=== PATIENT | male | born 1955 | race Caucasian/White ===

== ENCOUNTER 2018-05-14 23:06 | Inpatient (IN) | payer BC, OTHER ==
[~2018-05-14] VITALS: Ht 170.2 cm; Wt 82.4 kg
[~2018-05-14 23:06] MED LIST: ASPI-650 PO; CARV3.122 PO; CARV6.252 PO; CLOP75TA PO; ENAL20TA PO; FINA5TAB4 PO; GABA300C10 PO; GLIP10TA13 PO; HYDR-3240 PO; INSU100I29 SQ; INSU100V13 SQ; LEVEMIR SQ; LEVO500T8 PO; LOSA25TA2 PO; METF10002 PO; METF500T17 PO; MULT-6 PO; OMEP-110 PO; PIOG30TA4 PO; PIOG30TA67 PO; PRAV40TA2 PO; PRAV80TA2 PO; TAMS0.4C2 PO
[2018-05-14] MEDS ORDERED: FUROSEMIDE 20 MG/2 ML IV ONE (23:30)
[2018-05-14] MEDS ORDERED: OXYcodone/APAP 7.5/325MG TABLET PO ONE (23:30)
[2018-05-14] MEDS ORDERED: OXYcodone/APAP 7.5/325MG TABLET ONE (23:32)
[2018-05-14] MEDS ORDERED: FUROSEMIDE 20 MG/2 ML ONE (23:32)
[2018-05-14 23:40] LABS: MEAN CORPUSCULAR HEMOGLOBIN 30.8 pg (27.5-34.5); MEAN CORPUSCULAR HGB CONC 33.5 g/dL (33.2-36.2); MEAN PLATELET VOLUME 8.7 fL (7.4-10.4); PLATELET COUNT 278 x10^3/uL (130-400); RED BLOOD COUNT 4.72 x10^6/uL (4.38-5.82); RED CELL DISTRIBUTION WIDTH 14.8 % (9.4-14.8)
[2018-05-14 23:54] LABS: ANION GAP 7 mmol/L (5-15); CALCIUM 8.3 mg/dL (8.5-10.1); CHLORIDE 106 mmol/L (98-107); CREATININE 1.72 mg/dL (0.7-1.3)
[2018-05-15 00:02] LABS: TROPONIN I 0.392 ng/mL (0.000-0.045)
[2018-05-15 00:05] LABS: BASOPHILS # (AUTO) 0.08 x10^3/uL (0-0.1); BASOPHILS % (AUTO) 1 % (0-1); EOSINOPHILS # (AUTO) 0.12 x10^3/uL (0-0.4); EOSINOPHILS % (AUTO) 1 % (1-7); LYMPHOCYTES # (AUTO) 1.64 x10^3/uL (1-3.4); LYMPHOCYTES % (AUTO) 9 % (22-44); MD SCAN; MONOCYTES # (AUTO) 0.88 x10^3/uL (0.2-0.8); MONOCYTES % (AUTO) 5 % (2-9); NEUTROPHILS # (AUTO) 16.02 x10^3/uL (1.8-6.8); NEUTROPHILS % (AUTO) 85 % (42-75)
[2018-05-15] MEDS ORDERED: INSU100V13 SC (00:19)
[2018-05-15] MEDS ORDERED: CARV25TA12 PO (00:19)
[2018-05-15] MEDS ORDERED: LOSA50TA7 PO (00:19)
[2018-05-15] MEDS ORDERED: GABA300C10 PO (00:19)
[2018-05-15] MEDS ORDERED: morphine SULFATE 10 MG/ML, 1ML IVPush PRN (01:00)
[2018-05-15] MEDS: INSULIN LISPRO 100 UNITS/ML, PEN SQ-INSULIN SCH ×5 (01:00→21:00)
[2018-05-15] MEDS ORDERED: METHOCARBAMOL 500 MG TABLET PO PRN (01:00)
[2018-05-15] MEDS ORDERED: BISACODYL 10 MG SUPP PR PRN (01:00)
[2018-05-15] MEDS ORDERED: ONDANSETRON ODT 4 MG PO PRN (01:00)
[2018-05-15] MEDS: NICOTINE 14MG/24 HR PATCH.TD24 TD SCH ×2 (01:00→22:45)
[2018-05-15] MEDS: OMEPRAZOLE 20 MG CAPSULE.DR PO SCH ×2 (01:00→20:59)
[2018-05-15 01:03] LABS: MICROSCOPIC INDICATED
[2018-05-15 01:04] LABS: CULTURE INDICATED? YES
[2018-05-15 01:13] LABS: HEMOGLOBIN A1C 7.8 % (4.2-6.3)
[2018-05-15 01:45] VITALS: BP 120/73
[2018-05-15 02:14] VITALS: BP 97/55
[2018-05-15] MEDS: PRAVASTATIN 40 MG TABLET PO SCH ×2 (02:58→20:59)
[2018-05-15 05:54] LABS: MEAN CORPUSCULAR HEMOGLOBIN 30.5 pg (27.5-34.5); MEAN CORPUSCULAR HGB CONC 33.1 g/dL (33.2-36.2); MEAN CORPUSCULAR VOLUME 92.1 fL (81-97); MEAN PLATELET VOLUME 8.7 fL (7.4-10.4); PLATELET COUNT 253 x10^3/uL (130-400); RED BLOOD COUNT 4.71 x10^6/uL (4.38-5.82); RED CELL DISTRIBUTION WIDTH 15.1 % (9.4-14.8)
[2018-05-15 06:03] LABS: ALANINE AMINOTRANSFERASE 12 U/L (12-78); ALBUMIN 2.3 g/dL (3.4-5.0); ANION GAP 9 mmol/L (5-15); CALCIUM 8.1 mg/dL (8.5-10.1); CHLORIDE 105 mmol/L (98-107); CREATININE 1.73 mg/dL (0.7-1.3)
[2018-05-15 06:08] LABS: ALKALINE PHOSPHATASE 95 U/L (45-117); BILIRUBIN,TOTAL 0.5 mg/dL (0.2-1.0); TOTAL PROTEIN 6.3 g/dL (6.4-8.2); TROPONIN I 0.309 ng/mL (0.000-0.045)
[2018-05-15 06:27] LABS: BASOPHILS # (AUTO) 0.04 x10^3/uL (0-0.1); BASOPHILS % (AUTO) 0 % (0-1); EOSINOPHILS # (AUTO) 0.23 x10^3/uL (0-0.4); EOSINOPHILS % (AUTO) 1 % (1-7); LYMPHOCYTES # (AUTO) 1.42 x10^3/uL (1-3.4); LYMPHOCYTES % (AUTO) 8 % (22-44); MD SCAN; MONOCYTES # (AUTO) 1.23 x10^3/uL (0.2-0.8); MONOCYTES % (AUTO) 7 % (2-9); NEUTROPHILS # (AUTO) 15.56 x10^3/uL (1.8-6.8); NEUTROPHILS % (AUTO) 84 % (42-75)
[2018-05-15 07:30] VITALS: BP 108/65
[2018-05-15] MEDS ORDERED: GLUCAGON 1 MG IM PRN (07:30)
[2018-05-15] MEDS ORDERED: DEXTROSE 50%, 50ML SYRINGE IVPush PRN (07:30)
[2018-05-15] MEDS ORDERED: DEXTROSE 4 GM TAB.CHEW PO PRN (07:30)
[2018-05-15] MEDS ORDERED: FUROSEMIDE 20 MG/2 ML IV SCH (07:30)
[2018-05-15] MEDS ORDERED: HYDROmorphone 2 MG/ML, 1ML ONE ×2 (07:34→20:41)
[2018-05-15] MEDS: HYDROmorphone 1 MG/ML, 1ML IV PRN ×2 (07:38→20:45)
[2018-05-15 08:10] LABS: CHOL/HDL RATIO 3.3; FREE T4 (FREE THYROXINE) 1.18 ng/dL (0.76-1.46); LDL/HDL RATIO 1.3 (0.5-3.0)
[2018-05-15] MEDS: SODIUM CHLORIDE FLUSH 10ML SYR IVF SCH ×4 (09:00→21:02)
[2018-05-15] MEDS: ASPIRIN 81 MG TABLET EC PO SCH (09:00)
[2018-05-15] MEDS ORDERED: FUROSEMIDE 40 MG/4 ML IV SCH ×2 (09:00→17:00)
[2018-05-15] MEDS ORDERED: LOSARTAN 50MG TABLET PO SCH (09:00)
[2018-05-15] MEDS: CEFTRIAXONE 2 GM in SODIUM CHLORIDE 0.9% 50 ML IV SCH (09:09)
[2018-05-15] MEDS: GABAPENTIN 300 MG CAPSULE PO SCH ×2 (09:10→20:59)
[2018-05-15] MEDS: MULTIVITAMIN 1 TABLET PO SCH (09:10)
[2018-05-15] MEDS: FINASTERIDE 5 MG TABLET PO SCH (09:10)
[2018-05-15] MEDS: TAMSULOSIN 0.4 MG CAP.ER.24H PO SCH (09:11)
[2018-05-15] MEDS: CARVEDILOL 25 MG TABLET PO SCH ×2 (09:11→20:59)
[2018-05-15 10:21] LABS: SODIUM,URINE RANDOM 114 mmol/L
[2018-05-15 10:27] LABS: CREATININE,URINE RANDOM < 13.00 mg/dL
[2018-05-15 11:53] LABS: TROPONIN I 0.233 ng/mL (0.000-0.045)
[2018-05-15] MEDS ORDERED: FENTANYL PF 100 MCG/2ML ONE ×2 (11:59→12:52)
[2018-05-15] MEDS ORDERED: PHENYLEPHRINE 10 MG/ML ONE (12:02)
[2018-05-15] MEDS ORDERED: SUCCINYLCHOLINE 20 MG/ML, 10ML ONE (12:02)
[2018-05-15] MEDS ORDERED: NEOSPORIN OINT. PKT 1 PACKET ONE (12:06)
[2018-05-15] MEDS ORDERED: ONDANSETRON 2MG/ML, 2ML ONE (12:53)
[2018-05-15] MEDS ORDERED: DEXAMETHASONE 4 MG/ML, 1ML ONE (12:53)
[2018-05-15] MEDS ORDERED: CEFAZOLIN 1,000 MG ONE (12:53)
[2018-05-15] MEDS ORDERED: PROPOFOL 10 MG/ML, 20ML ONE (12:53)
[2018-05-15] MEDS ORDERED: ONDANSETRON ODT 8 MG PO PRN (13:00)
[2018-05-15] MEDS ORDERED: LABETALOL 5MG/ML, 20ML IV PRN (13:00)
[2018-05-15] MEDS ORDERED: HYDROmorphone 1 MG/ML, 1ML IV PRN (13:00)
[2018-05-15] MEDS ORDERED: ACETAMINOPHEN 325 MG TABLET PO PRN (13:00)
[2018-05-15] MEDS ORDERED: OXYcodone 5 MG/5 ML ORAL.SOL UDC PO PRN (13:00)
[2018-05-15] MEDS ORDERED: SCOPOLAMINE PATCH, 1.5MG PATCH.TD72 TD PRN (13:00)
[2018-05-15] MEDS ORDERED: PROMETHAZINE 25 MG SUPP PR PRN (13:00)
[2018-05-15] MEDS ORDERED: MIDAZOLAM 1 MG/ML, 2ML IV PRN (13:00)
[2018-05-15] MEDS ORDERED: ALBUTEROL/IPRATROPIUM 2.5MG/0.5MG, 3 ML NPPB PRN (13:00)
[2018-05-15] MEDS ORDERED: hydrALAzine 20 MG/ML, 1ML IV PRN (13:00)
[2018-05-15] MEDS ORDERED: FENTANYL PF 100 MCG/2ML IV PRN (13:00)
[2018-05-15] MEDS ORDERED: ROPIvacaine/PF 0.5%, 30 ML ONE (13:25)
[2018-05-15 14:00] VITALS: BP 105/77
[2018-05-15] MEDS ORDERED: CEFAZOLIN PMX 1GM/50ML 50 ML IVPB SCH (14:00)
[2018-05-15] MEDS ORDERED: OXYcodone IR 5MG TABLET ONE (17:05)
[2018-05-15] MEDS: FUROSEMIDE 40 MG/4 ML IV SCH (17:09)
[2018-05-15 17:26] LABS: ANION GAP 10 mmol/L (5-15); CALCIUM 8.2 mg/dL (8.5-10.1); CHLORIDE 104 mmol/L (98-107); CREATININE 1.76 mg/dL (0.7-1.3)
[2018-05-15] MEDS ORDERED: PHARMACY MAY ADJ FOR RENAL FX MC PRN (18:00)
[2018-05-15] MEDS ORDERED: SODIUM POLYSTYRENE SULFONATE ORAL SUSP PO ONE (18:00)
[2018-05-15 20:00] VITALS: BP 107/74
[2018-05-15] MEDS: CLOPIDOGREL 75 MG TABLET PO SCH (21:00)
[2018-05-16 02:00] VITALS: BP 118/71
[2018-05-16] MEDS ORDERED: HYDROmorphone 2 MG/ML, 1ML ONE ×2 (02:37→12:12)
[2018-05-16] MEDS: HYDROmorphone 1 MG/ML, 1ML IV PRN ×2 (02:40→12:19)
[2018-05-16 05:40] LABS: ALBUMIN 2.1 g/dL (3.4-5.0); ANION GAP 7 mmol/L (5-15); CALCIUM 8.3 mg/dL (8.5-10.1); CHLORIDE 102 mmol/L (98-107); CREATININE 1.85 mg/dL (0.7-1.3); MEAN CORPUSCULAR HEMOGLOBIN 30.9 pg (27.5-34.5); MEAN CORPUSCULAR HGB CONC 32.9 g/dL (33.2-36.2); MEAN CORPUSCULAR VOLUME 93.8 fL (81-97); PLATELET COUNT 248 x10^3/uL (130-400); RED BLOOD COUNT 4.62 x10^6/uL (4.38-5.82); RED CELL DISTRIBUTION WIDTH 14.9 % (9.4-14.8)
[2018-05-16 06:30] LABS: BASOPHILS # (AUTO) 0.05 x10^3/uL (0-0.1); BASOPHILS % (AUTO) 0 % (0-1); EOSINOPHILS % (AUTO) 0 % (1-7); LYMPHOCYTES # (AUTO) 0.53 x10^3/uL (1-3.4); LYMPHOCYTES % (AUTO) 2 % (22-44); MD SCAN; MONOCYTES # (AUTO) 1.02 x10^3/uL (0.2-0.8); MONOCYTES % (AUTO) 5 % (2-9); NEUTROPHILS # (AUTO) 20.32 x10^3/uL (1.8-6.8); NEUTROPHILS % (AUTO) 93 % (42-75)
[2018-05-16 07:29] VITALS: BP 152/80
[2018-05-16] MEDS: INSULIN LISPRO 100 UNITS/ML, PEN SQ-INSULIN SCH ×4 (08:12→21:16)
[2018-05-16] MEDS: FUROSEMIDE 40 MG/4 ML IV SCH ×2 (08:15→17:43)
[2018-05-16] MEDS: SODIUM CHLORIDE FLUSH 10ML SYR IVF SCH ×4 (09:00→21:00)
[2018-05-16] MEDS ORDERED: MAGNESIUM SULFATE PMX 2GM/50ML 50 ML IV ONE ×3 (09:00→12:30)
[2018-05-16] MEDS: CARVEDILOL 25 MG TABLET PO SCH ×2 (09:17→21:05)
[2018-05-16] MEDS: GABAPENTIN 300 MG CAPSULE PO SCH ×2 (09:18→21:05)
[2018-05-16] MEDS: FINASTERIDE 5 MG TABLET PO SCH (09:18)
[2018-05-16] MEDS: MULTIVITAMIN 1 TABLET PO SCH (09:19)
[2018-05-16] MEDS: TAMSULOSIN 0.4 MG CAP.ER.24H PO SCH (09:19)
[2018-05-16] MEDS: ASPIRIN 81 MG TABLET EC PO SCH (09:20)
[2018-05-16] MEDS: CEFTRIAXONE 2 GM in SODIUM CHLORIDE 0.9% 50 ML IV SCH (09:24)
[2018-05-16] MEDS ORDERED: REGADENOSON 0.4 MG/5 ML SYRINGE ONE (09:57)
[2018-05-16] MEDS: ACETAMINOPHEN 325 MG TABLET PO PRN ×2 (10:42→21:06)
[2018-05-16] MEDS: INSULIN GLARGINE 100 UNITS/ML, PEN SQ-INSULIN SCH (13:41)
[2018-05-16 14:12] VITALS: BP 152/79
[2018-05-16] MEDS: HYDROcodone/APAP 5/325 TABLET PO PRN ×2 (14:12→21:06)
[2018-05-16] MEDS ORDERED: INSULIN GLARGINE 100 UNITS/ML, PEN SQ-INSULIN ONE (18:00)
[2018-05-16] MEDS: CEFTRIAXONE PMX 2GM/50ML 50 ML IV SCH (19:30)
[2018-05-16 20:46] VITALS: BP 136/76
[2018-05-16] MEDS: PRAVASTATIN 40 MG TABLET PO SCH (21:06)
[2018-05-16] MEDS: OMEPRAZOLE 20 MG CAPSULE.DR PO SCH (21:07)
[2018-05-16] MEDS: CLOPIDOGREL 75 MG TABLET PO SCH (21:07)
[2018-05-17] MEDS: NICOTINE 14MG/24 HR PATCH.TD24 TD SCH (00:48)
[2018-05-17 03:00] VITALS: BP 142/75
[2018-05-17] MEDS: HYDROcodone/APAP 5/325 TABLET PO PRN ×3 (03:06→22:04)
[2018-05-17] MEDS ORDERED: HYDROmorphone 2 MG/ML, 1ML ONE ×2 (03:17→13:15)
[2018-05-17] MEDS: HYDROmorphone 1 MG/ML, 1ML IV PRN ×2 (03:22→13:22)
[2018-05-17 05:26] LABS: ALBUMIN 1.9 g/dL (3.4-5.0); ANION GAP 11 mmol/L (5-15); CHLORIDE 99 mmol/L (98-107)
[2018-05-17 05:34] LABS: ALANINE AMINOTRANSFERASE 13 U/L (12-78); ALKALINE PHOSPHATASE 107 U/L (45-117); BILIRUBIN,TOTAL 0.5 mg/dL (0.2-1.0); CREATININE 1.71 mg/dL (0.7-1.3)
[2018-05-17 06:17] LABS: MEAN CORPUSCULAR VOLUME 91.2 fL (81-97); MEAN PLATELET VOLUME 9.3 fL (7.4-10.4); PLATELET COUNT 243 x10^3/uL (130-400); RED BLOOD COUNT 4.27 x10^6/uL (4.38-5.82); RED CELL DISTRIBUTION WIDTH 14.9 % (9.4-14.8)
[2018-05-17 07:08] VITALS: BP 122/70
[2018-05-17 07:11] LABS: MD SCAN
[2018-05-17 07:12] LABS: BASOPHILS % (AUTO) 0 % (0-1); EOSINOPHILS # (AUTO) 0.02 x10^3/uL (0-0.4); EOSINOPHILS % (AUTO) 0 % (1-7); LYMPHOCYTES # (AUTO) 0.39 x10^3/uL (1-3.4); LYMPHOCYTES % (AUTO) 3 % (22-44); MONOCYTES # (AUTO) 0.72 x10^3/uL (0.2-0.8); MONOCYTES % (AUTO) 5 % (2-9); NEUTROPHILS % (AUTO) 93 % (42-75)
[2018-05-17] MEDS: ASPIRIN 81 MG TABLET EC PO SCH (07:52)
[2018-05-17] MEDS: MULTIVITAMIN 1 TABLET PO SCH (07:52)
[2018-05-17] MEDS: TAMSULOSIN 0.4 MG CAP.ER.24H PO SCH (07:52)
[2018-05-17] MEDS: FINASTERIDE 5 MG TABLET PO SCH (07:52)
[2018-05-17] MEDS: GABAPENTIN 300 MG CAPSULE PO SCH ×2 (07:53→20:39)
[2018-05-17] MEDS: CARVEDILOL 25 MG TABLET PO SCH ×2 (07:53→20:40)
[2018-05-17] MEDS: INSULIN GLARGINE 100 UNITS/ML, PEN SQ-INSULIN SCH (07:56)
[2018-05-17] MEDS: INSULIN LISPRO 100 UNITS/ML, PEN SQ-INSULIN SCH ×4 (07:56→20:41)
[2018-05-17] MEDS: FUROSEMIDE 40 MG/4 ML IV SCH ×2 (07:58→17:57)
[2018-05-17] MEDS: SODIUM CHLORIDE FLUSH 10ML SYR IVF SCH ×4 (07:59→20:42)
[2018-05-17] MEDS: CEFTRIAXONE PMX 2GM/50ML 50 ML IV SCH (08:09)
[2018-05-17] MEDS: FLUCONAZOLE 200 MG/100 ML 100 ML IV SCH (10:06)
[2018-05-17] MEDS ORDERED: MAGNESIUM SULFATE PMX 2GM/50ML 50 ML IV ONE (14:00)
[2018-05-17 14:36] VITALS: BP 126/73
[2018-05-17 19:03] VITALS: BP 135/72
[2018-05-17 20:36] VITALS: BP 121/72
[2018-05-17] MEDS: PRAVASTATIN 40 MG TABLET PO SCH (20:40)
[2018-05-17] MEDS: CLOPIDOGREL 75 MG TABLET PO SCH (20:40)
[2018-05-17] MEDS: OMEPRAZOLE 20 MG CAPSULE.DR PO SCH (20:40)
[2018-05-18] MEDS: NICOTINE 14MG/24 HR PATCH.TD24 TD SCH ×2 (01:13→23:48)
[2018-05-18] MEDS: HYDROcodone/APAP 5/325 TABLET PO PRN ×6 (01:57→23:49)
[2018-05-18 02:42] VITALS: BP 116/67
[2018-05-18 05:17] LABS: MEAN CORPUSCULAR HEMOGLOBIN 30.4 pg (27.5-34.5); MEAN CORPUSCULAR HGB CONC 33.3 g/dL (33.2-36.2); MEAN CORPUSCULAR VOLUME 91.3 fL (81-97); MEAN PLATELET VOLUME 8.9 fL (7.4-10.4); PLATELET COUNT 239 x10^3/uL (130-400); RED BLOOD COUNT 4.21 x10^6/uL (4.38-5.82); RED CELL DISTRIBUTION WIDTH 14.8 % (9.4-14.8)
[2018-05-18 05:24] LABS: ALBUMIN 1.9 g/dL (3.4-5.0); ANION GAP 7 mmol/L (5-15); CALCIUM 8.1 mg/dL (8.5-10.1); CHLORIDE 98 mmol/L (98-107)
[2018-05-18 05:29] LABS: ALANINE AMINOTRANSFERASE 36 U/L (12-78); ALKALINE PHOSPHATASE 146 U/L (45-117); BILIRUBIN,TOTAL 0.3 mg/dL (0.2-1.0); TOTAL PROTEIN 5.8 g/dL (6.4-8.2)
[2018-05-18 05:55] LABS: BASOPHILS # (AUTO) 0.03 x10^3/uL (0-0.1); BASOPHILS % (AUTO) 0 % (0-1); EOSINOPHILS # (AUTO) 0.12 x10^3/uL (0-0.4); EOSINOPHILS % (AUTO) 1 % (1-7); LYMPHOCYTES # (AUTO) 0.81 x10^3/uL (1-3.4); LYMPHOCYTES % (AUTO) 5 % (22-44); MD SCAN; MONOCYTES # (AUTO) 1.03 x10^3/uL (0.2-0.8); MONOCYTES % (AUTO) 6 % (2-9); NEUTROPHILS # (AUTO) 14.93 x10^3/uL (1.8-6.8); NEUTROPHILS % (AUTO) 88 % (42-75)
[2018-05-18 07:17] VITALS: BP 151/78
[2018-05-18] MEDS: INSULIN GLARGINE 100 UNITS/ML, PEN SQ-INSULIN SCH (08:39)
[2018-05-18] MEDS: INSULIN LISPRO 100 UNITS/ML, PEN SQ-INSULIN SCH ×4 (08:40→21:16)
[2018-05-18] MEDS: MULTIVITAMIN 1 TABLET PO SCH (08:42)
[2018-05-18] MEDS: TAMSULOSIN 0.4 MG CAP.ER.24H PO SCH (08:42)
[2018-05-18] MEDS: FINASTERIDE 5 MG TABLET PO SCH (08:42)
[2018-05-18] MEDS: GABAPENTIN 300 MG CAPSULE PO SCH ×2 (08:42→21:14)
[2018-05-18] MEDS: ASPIRIN 81 MG TABLET EC PO SCH (08:42)
[2018-05-18] MEDS: CARVEDILOL 25 MG TABLET PO SCH ×2 (08:43→21:14)
[2018-05-18] MEDS: FUROSEMIDE 40 MG/4 ML IV SCH ×2 (08:43→17:27)
[2018-05-18] MEDS: SODIUM CHLORIDE FLUSH 10ML SYR IVF SCH ×4 (09:00→21:18)
[2018-05-18] MEDS: FLUCONAZOLE 200 MG/100 ML 100 ML IV SCH (10:21)
[2018-05-18] MEDS: MAGNESIUM OXIDE 400 MG TABLET PO SCH ×2 (10:21→21:14)
[2018-05-18 13:35] VITALS: BP 134/77
[2018-05-18 14:00] VITALS: BP 123/76
[2018-05-18 17:54] VITALS: BP 134/77
[2018-05-18 19:18] VITALS: BP 140/82
[2018-05-18] MEDS: CLOPIDOGREL 75 MG TABLET PO SCH (21:14)
[2018-05-18] MEDS: OMEPRAZOLE 20 MG CAPSULE.DR PO SCH (21:14)
[2018-05-18] MEDS: PRAVASTATIN 40 MG TABLET PO SCH (21:14)
[2018-05-19 00:02] VITALS: BP 123/82
[2018-05-19 05:39] LABS: MEAN CORPUSCULAR HEMOGLOBIN 30.8 pg (27.5-34.5); MEAN CORPUSCULAR HGB CONC 33.3 g/dL (33.2-36.2); MEAN CORPUSCULAR VOLUME 92.4 fL (81-97); MEAN PLATELET VOLUME 9.5 fL (7.4-10.4); PLATELET COUNT 205 x10^3/uL (130-400); RED BLOOD COUNT 4.19 x10^6/uL (4.38-5.82)
[2018-05-19 05:50] LABS: ALBUMIN 1.6 g/dL (3.4-5.0); ANION GAP 9 mmol/L (5-15); CALCIUM 8.6 mg/dL (8.5-10.1); CHLORIDE 97 mmol/L (98-107)
[2018-05-19 05:53] LABS: ALANINE AMINOTRANSFERASE 59 U/L (12-78); ALKALINE PHOSPHATASE 216 U/L (45-117); BILIRUBIN,TOTAL 0.5 mg/dL (0.2-1.0); CREATININE 1.46 mg/dL (0.7-1.3); TOTAL PROTEIN 5.8 g/dL (6.4-8.2)
[2018-05-19 06:22] LABS: MD YES
[2018-05-19 06:35] LABS: LYMPH#(MANUAL) 0.85 x10^3/uL (1-3.4); LYMPHS% (MANUAL) 4 % (22-44); SEG#(MANUAL) 20.45 x10^3/uL (1.8-6.8); SEGS% (MANUAL) 96 % (42-75)
[2018-05-19 06:37] LABS: <PLATELET ESTIMATE> ADEQUATE; <PLT MORPHOLOGY> NORMAL PLT MORPH; <RBC MORPHOLOGY> NORMAL
[2018-05-19 07:21] VITALS: BP 118/73
[2018-05-19] MEDS ORDERED: OXYcodone IR 5MG TABLET ONE (08:41)
[2018-05-19] MEDS: INSULIN GLARGINE 100 UNITS/ML, PEN SQ-INSULIN SCH (08:54)
[2018-05-19] MEDS: INSULIN LISPRO 100 UNITS/ML, PEN SQ-INSULIN SCH ×4 (08:54→21:24)
[2018-05-19] MEDS: ASPIRIN 81 MG TABLET EC PO SCH (08:56)
[2018-05-19] MEDS: FLUCONAZOLE 200 MG/100 ML 100 ML IV SCH (08:56)
[2018-05-19] MEDS: CARVEDILOL 25 MG TABLET PO SCH ×2 (08:56→21:20)
[2018-05-19] MEDS: GABAPENTIN 300 MG CAPSULE PO SCH ×2 (08:57→21:21)
[2018-05-19] MEDS: TAMSULOSIN 0.4 MG CAP.ER.24H PO SCH (08:58)
[2018-05-19] MEDS: FINASTERIDE 5 MG TABLET PO SCH (08:58)
[2018-05-19] MEDS: FUROSEMIDE 40 MG/4 ML IV SCH ×2 (08:58→18:10)
[2018-05-19] MEDS: MULTIVITAMIN 1 TABLET PO SCH (08:58)
[2018-05-19] MEDS: MAGNESIUM OXIDE 400 MG TABLET PO SCH ×2 (08:58→21:21)
[2018-05-19] MEDS: SODIUM CHLORIDE FLUSH 10ML SYR IVF SCH ×4 (09:00→21:22)
[2018-05-19] MEDS ORDERED: POLYETHYLENE GLYCOL 17 GM PACKET ONE (09:23)
[2018-05-19] MEDS: POLYETHYLENE GLYCOL 17 GM PACKET PO PRN (09:24)
[2018-05-19] MEDS: HYDROcodone/APAP 5/325 TABLET PO PRN ×2 (09:27→21:01)
[2018-05-19] MEDS ORDERED: DOCUSATE 50 MG/5 ML, 10ML UDC PO PRN (09:30)
[2018-05-19 12:50] VITALS: BP 129/74
[2018-05-19] MEDS ORDERED: HYDROmorphone 2 MG/ML, 1ML ONE (18:08)
[2018-05-19] MEDS: HYDROmorphone 1 MG/ML, 1ML IV PRN (18:10)
[2018-05-19 19:02] VITALS: BP 117/54
[2018-05-19] MEDS: OMEPRAZOLE 20 MG CAPSULE.DR PO SCH (21:20)
[2018-05-19] MEDS: CLOPIDOGREL 75 MG TABLET PO SCH (21:21)
[2018-05-19] MEDS: PRAVASTATIN 40 MG TABLET PO SCH (21:21)
[2018-05-20] MEDS: NICOTINE 14MG/24 HR PATCH.TD24 TD SCH (01:12)
[2018-05-20 02:29] VITALS: BP 158/80
[2018-05-20 05:14] LABS: INTERNATIONAL NORMALIZED RATIO 1.11 (0.93-1.1); PROTHROMBIN TIME 11.4 Seconds (9.6-11.5)
[2018-05-20 05:18] LABS: ALBUMIN 1.9 g/dL (3.4-5.0); ANION GAP 7 mmol/L (5-15); CALCIUM 8.6 mg/dL (8.5-10.1); CHLORIDE 95 mmol/L (98-107)
[2018-05-20 05:21] LABS: ALANINE AMINOTRANSFERASE 59 U/L (12-78); ALKALINE PHOSPHATASE 275 U/L (45-117); BILIRUBIN,TOTAL 0.7 mg/dL (0.2-1.0); CREATININE 1.34 mg/dL (0.7-1.3); TOTAL PROTEIN 6.8 g/dL (6.4-8.2)
[2018-05-20 06:22] LABS: MEAN CORPUSCULAR HEMOGLOBIN 30.4 pg (27.5-34.5); MEAN CORPUSCULAR HGB CONC 32.8 g/dL (33.2-36.2); MEAN CORPUSCULAR VOLUME 92.8 fL (81-97); MEAN PLATELET VOLUME 8.7 fL (7.4-10.4); PLATELET COUNT 282 x10^3/uL (130-400); RED BLOOD COUNT 4.26 x10^6/uL (4.38-5.82)
[2018-05-20 06:47] LABS: MD YES
[2018-05-20 06:53] LABS: BAND#(MANUAL) 0.71 x10^3/uL; BANDS%(MANUAL) 3 % (0-7); EOS#(MANUAL) 0.48 x10^3/uL (0.0-0.4); EOS% (MANUAL) 2 % (1-7); LYMPH#(MANUAL) 1.19 x10^3/uL (1-3.4); LYMPHS% (MANUAL) 5 % (22-44); MONOS#(MANUAL) 2.14 x10^3/uL (0.3-2.7); MONOS% (MANUAL) 9 % (2-9); SEG#(MANUAL) 19.28 x10^3/uL (1.8-6.8); SEGS% (MANUAL) 81 % (42-75)
[2018-05-20 06:54] LABS: <PLATELET ESTIMATE> ADEQUATE; <PLT MORPHOLOGY> NORMAL PLT MORPH; <RBC MORPHOLOGY> NORMAL
[2018-05-20] MEDS: INSULIN LISPRO 100 UNITS/ML, PEN SQ-INSULIN SCH ×4 (07:00→22:29)
[2018-05-20 07:20] VITALS: BP 131/76
[2018-05-20] MEDS: INSULIN GLARGINE 100 UNITS/ML, PEN SQ-INSULIN SCH (08:46)
[2018-05-20] MEDS: SODIUM CHLORIDE FLUSH 10ML SYR IVF SCH ×4 (09:00→22:28)
[2018-05-20] MEDS: FUROSEMIDE 40 MG/4 ML IV SCH ×2 (09:01→22:29)
[2018-05-20] MEDS: MULTIVITAMIN 1 TABLET PO SCH (09:01)
[2018-05-20] MEDS: ASPIRIN 81 MG TABLET EC PO SCH (09:01)
[2018-05-20] MEDS: GABAPENTIN 300 MG CAPSULE PO SCH ×2 (09:02→22:27)
[2018-05-20] MEDS: HYDROcodone/APAP 5/325 TABLET PO PRN ×2 (09:02→22:28)
[2018-05-20] MEDS: CARVEDILOL 25 MG TABLET PO SCH ×2 (09:02→22:32)
[2018-05-20] MEDS: MAGNESIUM OXIDE 400 MG TABLET PO SCH ×2 (09:02→22:27)
[2018-05-20] MEDS: FINASTERIDE 5 MG TABLET PO SCH (09:13)
[2018-05-20] MEDS: TAMSULOSIN 0.4 MG CAP.ER.24H PO SCH (09:13)
[2018-05-20] MEDS: FLUCONAZOLE 200 MG/100 ML 100 ML IV SCH (09:13)
[2018-05-20 12:27] VITALS: BP 156/77
[2018-05-20] MEDS ORDERED: SODIUM BICARBONATE 8.4% 154 MEQ in DEXTROSE 5% 846 ML IV SCH (13:00)
[2018-05-20] MEDS ORDERED: MIDAZOLAM 1 MG/ML, 5ML ONE (15:36)
[2018-05-20] MEDS ORDERED: FENTANYL PF 100 MCG/2ML ONE ×2 (15:36)
[2018-05-20] MEDS ORDERED: PROTAMINE SULFATE 10 MG/ML, 25ML ONE (15:37)
[2018-05-20] MEDS ORDERED: NALOXONE 1 MG/ML, 2ML ONE (15:37)
[2018-05-20] MEDS ORDERED: FLUMAZENIL 0.1 MG/1 ML, 5ML ONE (15:37)
[2018-05-20] MEDS ORDERED: HEPARIN 1,000 UNITS/ML, 10ML ONE (15:38)
[2018-05-20 20:00] VITALS: BP 167/67
[2018-05-20 22:15] VITALS: BP 168/75
[2018-05-20] MEDS: PRAVASTATIN 40 MG TABLET PO SCH (22:27)
[2018-05-20] MEDS: OMEPRAZOLE 20 MG CAPSULE.DR PO SCH (22:28)
[2018-05-20] MEDS: CLOPIDOGREL 75 MG TABLET PO SCH (22:28)
[2018-05-21 04:00] VITALS: BP 172/101
[2018-05-21] MEDS: hydrALAzine 20 MG/ML, 1ML IVPush PRN (04:05)
[2018-05-21 04:06] VITALS: BP 184/90
[2018-05-21 04:28] VITALS: BP 129/75
[2018-05-21 07:12] VITALS: BP 129/72
[2018-05-21] MEDS: GABAPENTIN 300 MG CAPSULE PO SCH ×2 (08:47→21:28)
[2018-05-21] MEDS: TAMSULOSIN 0.4 MG CAP.ER.24H PO SCH (08:47)
[2018-05-21] MEDS: MULTIVITAMIN 1 TABLET PO SCH (08:47)
[2018-05-21] MEDS: MAGNESIUM OXIDE 400 MG TABLET PO SCH ×2 (08:48→21:28)
[2018-05-21] MEDS: CARVEDILOL 25 MG TABLET PO SCH ×2 (08:48→21:29)
[2018-05-21] MEDS: FINASTERIDE 5 MG TABLET PO SCH (08:48)
[2018-05-21] MEDS: ASPIRIN 81 MG TABLET EC PO SCH (08:48)
[2018-05-21] MEDS: FUROSEMIDE 40 MG/4 ML IV SCH ×2 (08:49→17:48)
[2018-05-21] MEDS: SODIUM CHLORIDE FLUSH 10ML SYR IVF SCH ×4 (08:50→21:00)
[2018-05-21] MEDS: NICOTINE 14MG/24 HR PATCH.TD24 TD SCH (08:52)
[2018-05-21] MEDS: INSULIN GLARGINE 100 UNITS/ML, PEN SQ-INSULIN SCH (09:08)
[2018-05-21] MEDS: INSULIN LISPRO 100 UNITS/ML, PEN SQ-INSULIN SCH ×4 (09:08→21:45)
[2018-05-21] MEDS: FLUCONAZOLE 200 MG/100 ML 100 ML IV SCH (09:09)
[2018-05-21] MEDS: HYDROcodone/APAP 5/325 TABLET PO PRN ×3 (11:09→21:46)
[2018-05-21] MEDS: POLYETHYLENE GLYCOL 17 GM PACKET PO PRN (11:10)
[2018-05-21 14:32] VITALS: BP 128/72
[2018-05-21 21:24] VITALS: BP 129/74
[2018-05-21] MEDS: CLOPIDOGREL 75 MG TABLET PO SCH (21:28)
[2018-05-21] MEDS: OMEPRAZOLE 20 MG CAPSULE.DR PO SCH (21:28)
[2018-05-21] MEDS: PRAVASTATIN 40 MG TABLET PO SCH (21:28)
[2018-05-22 03:29] VITALS: BP 178/81
[2018-05-22] MEDS: hydrALAzine 20 MG/ML, 1ML IVPush PRN (03:39)
[2018-05-22 04:59] LABS: MEAN CORPUSCULAR HEMOGLOBIN 30.2 pg (27.5-34.5); MEAN CORPUSCULAR HGB CONC 33.1 g/dL (33.2-36.2); MEAN CORPUSCULAR VOLUME 91.3 fL (81-97); MEAN PLATELET VOLUME 8.5 fL (7.4-10.4); PLATELET COUNT 391 x10^3/uL (130-400); RED BLOOD COUNT 4.28 x10^6/uL (4.38-5.82); RED CELL DISTRIBUTION WIDTH 14.9 % (9.4-14.8)
[2018-05-22 05:11] LABS: ALANINE AMINOTRANSFERASE 37 U/L (12-78); ALBUMIN 1.8 g/dL (3.4-5.0); ANION GAP 7 mmol/L (5-15); CALCIUM 8.5 mg/dL (8.5-10.1); CHLORIDE 96 mmol/L (98-107); CREATININE 0.95 mg/dL (0.7-1.3)
[2018-05-22 05:13] LABS: ALKALINE PHOSPHATASE 214 U/L (45-117); BILIRUBIN,TOTAL 0.5 mg/dL (0.2-1.0); TOTAL PROTEIN 6.4 g/dL (6.4-8.2)
[2018-05-22 05:43] LABS: BASOPHILS # (AUTO) 0.07 x10^3/uL (0-0.1); BASOPHILS % (AUTO) 1 % (0-1); EOSINOPHILS # (AUTO) 0.26 x10^3/uL (0-0.4); EOSINOPHILS % (AUTO) 2 % (1-7); LYMPHOCYTES # (AUTO) 1.51 x10^3/uL (1-3.4); LYMPHOCYTES % (AUTO) 10 % (22-44); MONOCYTES # (AUTO) 0.46 x10^3/uL (0.2-0.8); MONOCYTES % (AUTO) 3 % (2-9); NEUTROPHILS # (AUTO) 12.14 x10^3/uL (1.8-6.8); NEUTROPHILS % (AUTO) 84 % (42-75)
[2018-05-22 05:48] LABS: MD SCAN
[2018-05-22 06:43] VITALS: BP 160/77
[2018-05-22] MEDS: SODIUM CHLORIDE FLUSH 10ML SYR IVF SCH ×4 (07:58→21:30)
[2018-05-22] MEDS: FUROSEMIDE 40 MG/4 ML IV SCH ×2 (07:58→16:31)
[2018-05-22] MEDS: INSULIN LISPRO 100 UNITS/ML, PEN SQ-INSULIN SCH ×4 (08:05→21:35)
[2018-05-22] MEDS: MAGNESIUM OXIDE 400 MG TABLET PO SCH ×2 (09:26→21:31)
[2018-05-22] MEDS: FINASTERIDE 5 MG TABLET PO SCH (09:26)
[2018-05-22] MEDS: TAMSULOSIN 0.4 MG CAP.ER.24H PO SCH (09:26)
[2018-05-22] MEDS: FLUCONAZOLE 200 MG/100 ML 100 ML IV SCH (09:27)
[2018-05-22] MEDS: MULTIVITAMIN 1 TABLET PO SCH (09:27)
[2018-05-22] MEDS: CARVEDILOL 25 MG TABLET PO SCH ×2 (09:27→21:31)
[2018-05-22] MEDS: ASPIRIN 81 MG TABLET EC PO SCH (09:27)
[2018-05-22] MEDS: GABAPENTIN 300 MG CAPSULE PO SCH ×2 (09:27→21:31)
[2018-05-22] MEDS: NICOTINE 14MG/24 HR PATCH.TD24 TD SCH (09:28)
[2018-05-22] MEDS: INSULIN GLARGINE 100 UNITS/ML, PEN SQ-INSULIN SCH (09:28)
[2018-05-22 14:54] VITALS: BP 147/66
[2018-05-22 21:27] VITALS: BP 165/80
[2018-05-22] MEDS: PRAVASTATIN 40 MG TABLET PO SCH (21:30)
[2018-05-22] MEDS: OMEPRAZOLE 20 MG CAPSULE.DR PO SCH (21:30)
[2018-05-22] MEDS: CLOPIDOGREL 75 MG TABLET PO SCH (21:31)
[2018-05-23 03:51] VITALS: BP 155/77
[2018-05-23 07:34] VITALS: BP 184/80
[2018-05-23] MEDS: FINASTERIDE 5 MG TABLET PO SCH (08:16)
[2018-05-23] MEDS: ASPIRIN 81 MG TABLET EC PO SCH (08:17)
[2018-05-23] MEDS: GABAPENTIN 300 MG CAPSULE PO SCH (08:17)
[2018-05-23] MEDS: TAMSULOSIN 0.4 MG CAP.ER.24H PO SCH (08:17)
[2018-05-23] MEDS: CARVEDILOL 25 MG TABLET PO SCH (08:18)
[2018-05-23] MEDS: MULTIVITAMIN 1 TABLET PO SCH (08:18)
[2018-05-23] MEDS: MAGNESIUM OXIDE 400 MG TABLET PO SCH (08:18)
[2018-05-23] MEDS: NICOTINE 14MG/24 HR PATCH.TD24 TD SCH (08:19)
[2018-05-23] MEDS: FUROSEMIDE 40 MG/4 ML IV SCH ×2 (08:19→16:43)
[2018-05-23] MEDS: INSULIN LISPRO 100 UNITS/ML, PEN SQ-INSULIN SCH ×3 (08:36→17:32)
[2018-05-23] MEDS: INSULIN GLARGINE 100 UNITS/ML, PEN SQ-INSULIN SCH (08:37)
[2018-05-23] MEDS: SODIUM CHLORIDE FLUSH 10ML SYR IVF SCH ×2 (09:00)
[2018-05-23] MEDS: FLUCONAZOLE 200 MG/100 ML 100 ML IV SCH (09:33)
[2018-05-23] MEDS ORDERED: METH500T7 PO (11:52)
[2018-05-23] MEDS ORDERED: TRAM50TA2 PO (11:52)
[2018-05-23] MEDS ORDERED: FURO-92 PO (11:52)
[2018-05-23] MEDS ORDERED: MAGN400T26 PO (11:52)
[2018-05-23] MEDS ORDERED: POLY17PO5 PO (11:52)
[2018-05-23] MEDS ORDERED: INSU100I13 SQ-INSULIN (11:52)
[2018-05-23] MEDS ORDERED: OXYC5SOL8 PO (11:52)
[2018-05-23] MEDS ORDERED: POTA20TA14 PO (11:52)
[2018-05-23] MEDS ORDERED: ONDA4TAB13 PO (11:52)
[2018-05-23] MEDS ORDERED: IPRA3AMP30 NPPB (11:52)
[2018-05-23] MEDS ORDERED: FLUC200T PO (11:52)
[2018-05-23] MEDS ORDERED: NICO-486 TD (11:52)
[2018-05-23] MEDS ORDERED: GLIP10TA13 PO (11:52)
[2018-05-23 12:19] VITALS: BP 165/78
[2018-05-23] MEDS: HYDROcodone/APAP 5/325 TABLET PO PRN (15:49)
== END 2018-05-23 18:13 | DRG 270 ==
LOC: ED 23:30 → EDIP 05-15 00:13 → 4WST 05-15 01:16 → 5SO 05-15 02:24
PROVIDERS: ADMIT Hospitalist; ATTEND Internal Medicine
PROC: 0QS604Z Reposition Right Upper Femur with Internal Fixation Device, Open Approach (ICD-10-PCS; 2018-05-15)
PROC: 0T9B70Z Drainage of Bladder with Drainage Device, Via Natural or Artificial Opening (ICD-10-PCS; 2018-05-15)
PROC: 04CK3ZZ Extirpation of Matter from Right Femoral Artery, Percutaneous Approach (ICD-10-PCS; principal; 2018-05-20)
PROC: 047K3D1 Dilation of Right Femoral Artery with Intraluminal Device, using Drug-Coated Balloon, Percutaneous Approach (ICD-10-PCS; 2018-05-20)
PROC: 04CM3ZZ Extirpation of Matter from Right Popliteal Artery, Percutaneous Approach (ICD-10-PCS; 2018-05-20)
PROC: 047M3D1 Dilation of Right Popliteal Artery with Intraluminal Device, using Drug-Coated Balloon, Percutaneous Approach (ICD-10-PCS; 2018-05-20)
PROC: B41F1ZZ Fluoroscopy of Right Lower Extremity Arteries using Low Osmolar Contrast (ICD-10-PCS; 2018-05-20)
DX: I70.201 Unspecified atherosclerosis of native arteries of extremities, right leg (principal); I21.4 Non-ST elevation (NSTEMI) myocardial infarction; S72.141A Displaced intertrochanteric fracture of right femur, initial encounter for closed fracture; N17.0 Acute kidney failure with tubular necrosis; J96.01 Acute respiratory failure with hypoxia; I50.33 Acute on chronic diastolic (congestive) heart failure; E43 Unspecified severe protein-calorie malnutrition; N39.0 Urinary tract infection, site not specified; I25.10 Atherosclerotic heart disease of native coronary artery without angina pectoris; L89.619 Pressure ulcer of right heel, unspecified stage; I11.0 Hypertensive heart disease with heart failure; F17.210 Nicotine dependence, cigarettes, uncomplicated; E11.42 Type 2 diabetes mellitus with diabetic polyneuropathy; E11.51 Type 2 diabetes mellitus with diabetic peripheral angiopathy without gangrene; Z66 Do not resuscitate; F12.90 Cannabis use, unspecified, uncomplicated; E83.42 Hypomagnesemia; E78.5 Hyperlipidemia, unspecified; W18.30XA Fall on same level, unspecified, initial encounter; Z79.4 Long term (current) use of insulin; Z85.51 Personal history of malignant neoplasm of bladder; I25.2 Old myocardial infarction; Z79.899 Other long term (current) drug therapy; Z88.1 Allergy status to other antibiotic agents; Z68.28 Body mass index [BMI] 28.0-28.9, adult; Z90.49 Acquired absence of other specified parts of digestive tract; Z98.49 Cataract extraction status, unspecified eye; Y93.89 Activity, other specified; Y99.8 Other external cause status; Y92.009 Unspecified place in unspecified non-institutional (private) residence as the place of occurrence of the external cause
CPT/HCPCS: 36415; 37225; 51702; 71045; 75710; 76000; 76700; 76770; 78452; 80048; 80053; 80061; 81001; 82040; 82570; 82962; 83036; 83735; 83880; 84100; 84300; 84439; 84443; 84484; 85025; 85610; 87040; 87086; 87106; 87186; 90656; 93005; 93017; 93306; 93922; 93926; 96374; 99156; 99157; 99285; C1713; C1725; G0378; J0690; J0696; J1100; J1170; J1644; J1940; J2250; J2405; J2704; J2720; J2785; J2795; J3010; J7070; A9502; C1714; C1751; C1769; C1884; C1894; C2623; C9898; J0330; J0360; J1450; J1815; J2310; J2370; J3475

== ENCOUNTER 2019-07-08 19:07 | Inpatient (IN) | payer BC ==
[~2019-07-08] VITALS: Ht 175.3 cm; Wt 77.0 kg
[~2019-07-08 19:07] MED LIST changes: +ACID1CAP PO; +ASPI-496 PO; +CARV25TA12 PO; +ESCI20TA PO; +FLUC200T PO; +FURO-92 PO; +FURO20TA3 PO; +INSU100I13 SQ-INSULIN; +INSU100I28 SQ; +INSU100V13 SC; +IPRA3AMP30 NPPB; +LACT1TAB13 PO; +LOSA50TA14 PO; +MAGN400T26 PO; +METH500T7 PO; +NICO-486 TD; +ONDA4TAB13 PO; +OXYC1TAB7 PO; +OXYC5SOL8 PO; +POLY17PO5 PO; +POTA20TA14 PO; +SULF-169 PO; +TRAM50TA2 PO
[2019-07-08] MEDS ORDERED: SODIUM CHLORIDE FLUSH 10ML SYR IVF ONE (19:30)
[2019-07-08] MEDS ORDERED: SODIUM CHLORIDE 0.9% 1,000ML IVBOLUS ONE (19:30)
[2019-07-08 19:46] LABS: BASOPHILS # (AUTO) 0.02 x10^3/uL (0-0.1); BASOPHILS % (AUTO) 0 % (0-1); EOSINOPHILS # (AUTO) 0.08 x10^3/uL (0-0.4); EOSINOPHILS % (AUTO) 1 % (1-7); LYMPHOCYTES # (AUTO) 2.33 x10^3/uL (1-3.4); LYMPHOCYTES % (AUTO) 23 % (22-44); MD NO; MEAN CORPUSCULAR HGB CONC 32.4 g/dL (33.2-36.2); MEAN CORPUSCULAR VOLUME 95.7 fL (81-97); MEAN PLATELET VOLUME 9.1 fL (7.4-10.4); MONOCYTES # (AUTO) 0.64 x10^3/uL (0.2-0.8); MONOCYTES % (AUTO) 6 % (2-9); NEUTROPHILS # (AUTO) 7.27 x10^3/uL (1.8-6.8); NEUTROPHILS % (AUTO) 70 % (42-75); PLATELET COUNT 199 x10^3/uL (130-400); RED BLOOD COUNT 4.84 x10^6/uL (4.38-5.82); RED CELL DISTRIBUTION WIDTH 15.8 % (9.4-14.8)
[2019-07-08 19:55] LABS: ALANINE AMINOTRANSFERASE 12 U/L (12-78); ALBUMIN 3.1 g/dL (3.4-5.0); ANION GAP 3 mmol/L (5-15); CALCIUM 8.4 mg/dL (8.5-10.1); CHLORIDE 109 mmol/L (98-107); CREATININE 1.16 mg/dL (0.7-1.3)
[2019-07-08 19:57] LABS: ALKALINE PHOSPHATASE 80 U/L (45-117); BILIRUBIN,TOTAL 0.7 mg/dL (0.2-1.0); TOTAL PROTEIN 7.3 g/dL (6.4-8.2)
--- NOTE | 2019-07-08 20:23 | NUR ---
BC DONE AND IV MEDS STARTED ORDERED.
[2019-07-08] MEDS ORDERED: AMPICILLIN/SULBACTAM 3 GM in SODIUM CHLORIDE 0.9% 100 ML IV ONE (20:30)
[2019-07-08] MEDS ORDERED: VANCOMYCIN 1,600 MG in SODIUM CHLORIDE 0.9% 250 ML IV ONE (20:30)
[2019-07-08] MEDS ORDERED: VANCOMYCIN PER PHARMACY MC PRN ×2 (20:30→21:30)
[2019-07-08] MEDS ORDERED: ACETAMINOPHEN 325 MG TABLET PO PRN (21:00)
[2019-07-08] MEDS ORDERED: morphine SULFATE 10 MG/ML, 1ML IVPush PRN (21:00)
[2019-07-08] MEDS ORDERED: ONDANSETRON 2MG/ML, 2ML IVPush PRN (21:00)
--- NOTE | 2019-07-08 21:16 | NUR ---
PT REQUESTING PAIN MEDS.
[2019-07-08] MEDS ORDERED: OXYcodone/APAP 5/325MG TABLET ONE (21:19)
--- NOTE | 2019-07-08 21:24 | NUR ---
PT MEDICATED FOR PAIN ORDERED.
[2019-07-08] MEDS ORDERED: OXYcodone/APAP 5/325MG TABLET PO ONE (21:30)
[2019-07-08] MEDS ORDERED: INSULIN GLARGINE 100 UNITS/ML, PEN SQ-INSULIN SCH (21:30)
[2019-07-08] MEDS: PRAVASTATIN 40 MG TABLET PO SCH (21:30)
--- NOTE | 2019-07-08 22:04 | NUR ---
REPORT CALLED PT READY TO GO.
[2019-07-08 22:30] VITALS: BP 117/73
[2019-07-09] VITALS (9 sets, daily range): BP systolic 92–193; BP diastolic 65–93
[2019-07-09] MEDS ORDERED: DEXTROSE 50%, 50ML SYRINGE IVPush ONE (01:00)
[2019-07-09] MEDS ORDERED: PHARMACOKINETIC CONSULTATION MC ONE ×2 (02:30)
[2019-07-09] MEDS ORDERED: PHARMACOKINETIC MONITORING MC PRN (02:30)
[2019-07-09] MEDS: AMPICILLIN/SULBACTAM 3 GM in SODIUM CHLORIDE 0.9% 100 ML IV SCH ×4 (05:57→23:55)
[2019-07-09 06:53] LABS: BASOPHILS # (AUTO) 0.03 x10^3/uL (0-0.1); BASOPHILS % (AUTO) 0 % (0-1); EOSINOPHILS # (AUTO) 0.11 x10^3/uL (0-0.4); EOSINOPHILS % (AUTO) 1 % (1-7); LYMPHOCYTES # (AUTO) 1.85 x10^3/uL (1-3.4); LYMPHOCYTES % (AUTO) 21 % (22-44); MD NO; MEAN CORPUSCULAR HEMOGLOBIN 31.5 pg (27.5-34.5); MEAN CORPUSCULAR HGB CONC 32.5 g/dL (33.2-36.2); MEAN CORPUSCULAR VOLUME 96.9 fL (81-97); MEAN PLATELET VOLUME 9.3 fL (7.4-10.4); MONOCYTES # (AUTO) 0.61 x10^3/uL (0.2-0.8); MONOCYTES % (AUTO) 7 % (2-9); NEUTROPHILS # (AUTO) 6.06 x10^3/uL (1.8-6.8); NEUTROPHILS % (AUTO) 70 % (42-75); PLATELET COUNT 184 x10^3/uL (130-400); RED BLOOD COUNT 4.57 x10^6/uL (4.38-5.82)
[2019-07-09] MEDS ORDERED: INSULIN LISPRO 100 UNITS/ML, PEN SQ-INSULIN SCH (07:00)
[2019-07-09] MEDS ORDERED: D5%-0.45% NACL 1,000 ML IV SCH (07:00)
[2019-07-09] MEDS: INSULIN LISPRO 100 UNITS/ML, PEN SQ-INSULIN SCH ×4 (07:00→21:26)
[2019-07-09 07:04] LABS: ANION GAP 3 mmol/L (5-15); CALCIUM 8.6 mg/dL (8.5-10.1); CHLORIDE 110 mmol/L (98-107)
[2019-07-09] MEDS ORDERED: FUROSEMIDE 20 MG TABLET PO SCH (09:00)
[2019-07-09] MEDS: LOSARTAN 50MG TABLET PO SCH (09:00)
[2019-07-09] MEDS ORDERED: INSULIN GLARGINE 100 UNITS/ML, PEN SQ-INSULIN SCH (09:00)
[2019-07-09] MEDS: CARVEDILOL 25 MG TABLET PO SCH ×2 (09:00→21:24)
[2019-07-09] MEDS ORDERED: CARVEDILOL 25 MG TABLET PO SCH (09:00)
[2019-07-09] MEDS ORDERED: LOSARTAN 50MG TABLET PO SCH (09:00)
[2019-07-09] MEDS: ENOXAPARIN 40 MG/0.4 ML SQ SCH (10:18)
[2019-07-09] MEDS: TAMSULOSIN 0.4 MG CAP.ER.24H PO SCH (10:18)
[2019-07-09] MEDS: GABAPENTIN 300 MG CAPSULE PO SCH ×2 (10:18→21:23)
[2019-07-09] MEDS: ASPIRIN 81 MG TABLET EC PO SCH (10:19)
[2019-07-09] MEDS: FINASTERIDE 5 MG TABLET PO SCH (10:19)
[2019-07-09] MEDS ORDERED: LOSARTAN 50MG TABLET PO ONE (13:30)
[2019-07-09] MEDS: OXYcodone IR 5MG TABLET PO PRN ×3 (13:37→22:04)
[2019-07-09] MEDS: VANCOMYCIN 1,400 MG in SODIUM CHLORIDE 0.9% 250 ML IV SCH (18:05)
[2019-07-09] MEDS: PRAVASTATIN 40 MG TABLET PO SCH (21:23)
[2019-07-09] MEDS: CLOPIDOGREL 75 MG TABLET PO SCH (21:23)
[2019-07-09] MEDS: OMEPRAZOLE 20 MG CAPSULE.DR PO SCH (21:24)
[2019-07-09] MEDS: INSULIN GLARGINE 100 UNITS/ML, PEN SQ-INSULIN SCH (21:26)
[2019-07-10] MEDS ORDERED: hydrALAzine 20 MG/ML, 1ML IV PRN (00:30)
[2019-07-10 02:14] VITALS: BP 145/78
[2019-07-10] MEDS: AMPICILLIN/SULBACTAM 3 GM in SODIUM CHLORIDE 0.9% 100 ML IV SCH ×3 (06:14→17:54)
[2019-07-10] MEDS: INSULIN LISPRO 100 UNITS/ML, PEN SQ-INSULIN SCH ×4 (07:00→19:51)
[2019-07-10] MEDS: CARVEDILOL 25 MG TABLET PO SCH ×2 (07:54→19:50)
[2019-07-10] MEDS: ASPIRIN 81 MG TABLET EC PO SCH (07:54)
[2019-07-10] MEDS: GABAPENTIN 300 MG CAPSULE PO SCH ×2 (07:54→19:49)
[2019-07-10] MEDS: TAMSULOSIN 0.4 MG CAP.ER.24H PO SCH (07:55)
[2019-07-10] MEDS: LOSARTAN 50MG TABLET PO SCH (07:56)
[2019-07-10] MEDS: ENOXAPARIN 40 MG/0.4 ML SQ SCH (07:59)
[2019-07-10] MEDS: FINASTERIDE 5 MG TABLET PO SCH (07:59)
[2019-07-10] MEDS: INSULIN GLARGINE 100 UNITS/ML, PEN SQ-INSULIN SCH ×2 (08:01→19:52)
[2019-07-10 08:45] VITALS: BP 154/66
[2019-07-10] MEDS: OXYcodone IR 5MG TABLET PO PRN ×3 (09:47→19:48)
[2019-07-10] MEDS: VANCOMYCIN 1,400 MG in SODIUM CHLORIDE 0.9% 250 ML IV SCH (13:37)
[2019-07-10 13:40] VITALS: BP 147/69
[2019-07-10 18:48] VITALS: BP 178/83
[2019-07-10] MEDS: CLOPIDOGREL 75 MG TABLET PO SCH (19:49)
[2019-07-10] MEDS: OMEPRAZOLE 20 MG CAPSULE.DR PO SCH (19:49)
[2019-07-10] MEDS: PRAVASTATIN 40 MG TABLET PO SCH (19:49)
[2019-07-11] MEDS: OXYcodone IR 5MG TABLET PO PRN ×3 (00:17→13:45)
[2019-07-11] MEDS: AMPICILLIN/SULBACTAM 3 GM in SODIUM CHLORIDE 0.9% 100 ML IV SCH ×2 (00:17→06:15)
[2019-07-11 01:41] VITALS: BP 149/69
[2019-07-11] MEDS: INSULIN LISPRO 100 UNITS/ML, PEN SQ-INSULIN SCH ×2 (07:00→11:00)
[2019-07-11] MEDS: VANCOMYCIN 1,400 MG in SODIUM CHLORIDE 0.9% 250 ML IV SCH (07:38)
[2019-07-11] MEDS: ENOXAPARIN 40 MG/0.4 ML SQ SCH (07:43)
[2019-07-11] MEDS: FINASTERIDE 5 MG TABLET PO SCH (07:43)
[2019-07-11] MEDS: GABAPENTIN 300 MG CAPSULE PO SCH (07:43)
[2019-07-11] MEDS: CARVEDILOL 25 MG TABLET PO SCH (07:44)
[2019-07-11] MEDS: ASPIRIN 81 MG TABLET EC PO SCH (07:44)
[2019-07-11] MEDS: TAMSULOSIN 0.4 MG CAP.ER.24H PO SCH (07:44)
[2019-07-11] MEDS: LOSARTAN 50MG TABLET PO SCH (07:44)
[2019-07-11] MEDS: INSULIN GLARGINE 100 UNITS/ML, PEN SQ-INSULIN SCH (07:45)
[2019-07-11 08:27] VITALS: BP 145/65
[2019-07-11 09:06] LABS: BASOPHILS # (AUTO) 0.05 x10^3/uL (0-0.1); BASOPHILS % (AUTO) 1 % (0-1); EOSINOPHILS % (AUTO) 2 % (1-7); LYMPHOCYTES % (AUTO) 24 % (22-44); MD NO; MEAN CORPUSCULAR HEMOGLOBIN 30.9 pg (27.5-34.5); MEAN CORPUSCULAR HGB CONC 32.7 g/dL (33.2-36.2); MEAN CORPUSCULAR VOLUME 94.6 fL (81-97); MEAN PLATELET VOLUME 8.6 fL (7.4-10.4); MONOCYTES # (AUTO) 0.42 x10^3/uL (0.2-0.8); MONOCYTES % (AUTO) 5 % (2-9); NEUTROPHILS # (AUTO) 6.08 x10^3/uL (1.8-6.8); NEUTROPHILS % (AUTO) 69 % (42-75); PLATELET COUNT 197 x10^3/uL (130-400); RED BLOOD COUNT 4.83 x10^6/uL (4.38-5.82); RED CELL DISTRIBUTION WIDTH 15.6 % (9.4-14.8)
[2019-07-11 09:07] LABS: HCT (SEDRATE) 45.7 % (39.2-51.8)
[2019-07-11 09:14] LABS: ALANINE AMINOTRANSFERASE 12 U/L (12-78); ALBUMIN 3.1 g/dL (3.4-5.0); ANION GAP 3 mmol/L (5-15); CALCIUM 8.6 mg/dL (8.5-10.1); CHLORIDE 111 mmol/L (98-107); CREATININE 0.92 mg/dL (0.7-1.3)
[2019-07-11 09:21] LABS: ALKALINE PHOSPHATASE 75 U/L (45-117); BILIRUBIN,TOTAL 0.7 mg/dL (0.2-1.0); TOTAL PROTEIN 7.1 g/dL (6.4-8.2)
[2019-07-11] MEDS ORDERED: LINEZOLID PMX 600MG/300ML 300 ML IV SCH (11:00)
[2019-07-11] MEDS ORDERED: LINE600T12 PO (11:41)
[2019-07-11 12:49] VITALS: BP 147/71
== END 2019-07-11 15:50 | disposition home or self-care (01) | DRG 863 ==
LOC: ED 19:16 → EDIP 20:45 → 3N 23:00
PROVIDERS: ADMIT Internal Medicine; ATTEND Hospitalist
DX: T81.41XA Infection following a procedure, superficial incisional surgical site, initial encounter (principal); I50.32 Chronic diastolic (congestive) heart failure; L03.116 Cellulitis of left lower limb; M86.172 Other acute osteomyelitis, left ankle and foot; E11.40 Type 2 diabetes mellitus with diabetic neuropathy, unspecified; E11.51 Type 2 diabetes mellitus with diabetic peripheral angiopathy without gangrene; E78.5 Hyperlipidemia, unspecified; F12.90 Cannabis use, unspecified, uncomplicated; I11.0 Hypertensive heart disease with heart failure; I25.10 Atherosclerotic heart disease of native coronary artery without angina pectoris; N40.0 Benign prostatic hyperplasia without lower urinary tract symptoms; E11.69 Type 2 diabetes mellitus with other specified complication; K21.9 Gastro-esophageal reflux disease without esophagitis; Y83.8 Other surgical procedures as the cause of abnormal reaction of the patient, or of later complication, without mention of misadventure at the time of the procedure; Y92.89 Other specified places as the place of occurrence of the external cause; Z89.429 Acquired absence of other toe(s), unspecified side; Z79.02 Long term (current) use of antithrombotics/antiplatelets
CPT/HCPCS: 36415; 80048; 80053; 82947; 82962; 83605; 84145; 85025; 85651; 86140; 87040; 87070; 87077; 87186; 87205; 93005; 99285; G0378; J0295; J1650; J2020; J3370; J1815; J7030; J7050

== ENCOUNTER 2019-08-18 13:48 | Inpatient (IN) | payer BC ==
[~2019-08-18] VITALS: Ht 170.2 cm; Wt 75.0 kg
[~2019-08-18 13:48] MED LIST changes: +LINE600T12 PO
[2019-08-18 14:30] VITALS: BP 193/80
[2019-08-18] MEDS: LACTATED RINGERS 1,000 ML IV SCH ×4 (15:30→22:00)
[2019-08-18] MEDS ORDERED: FENTANYL PF 250 MCG/5ML ONE (16:36)
[2019-08-18] MEDS ORDERED: MIDAZOLAM 1 MG/ML, 2ML ONE (16:36)
[2019-08-18] MEDS ORDERED: DEXAMETHASONE 4 MG/ML, 1ML ONE (17:26)
[2019-08-18] MEDS ORDERED: CEFAZOLIN 1,000 MG ONE (17:36)
[2019-08-18] MEDS ORDERED: PROPOFOL 10 MG/ML, 20ML ONE (17:36)
[2019-08-18] MEDS ORDERED: ROCURONIUM 10MG/ML,5ML ONE (17:37)
[2019-08-18] MEDS ORDERED: SUCCINYLCHOLINE 20 MG/ML, 10ML ONE (17:37)
[2019-08-18] MEDS ORDERED: METOCLOPRAMIDE 5 MG/ML, 2ML ONE (17:42)
[2019-08-18] MEDS ORDERED: ONDANSETRON 2MG/ML, 2ML ONE (18:28)
[2019-08-18] MEDS ORDERED: ONDANSETRON 2MG/ML, 2ML IVPush PRN (19:00)
[2019-08-18] MEDS ORDERED: ACETAMINOPHEN 650 MG/20.3 ML UDC PO PRN (19:00)
[2019-08-18] MEDS ORDERED: FENTANYL PF 100 MCG/2ML ONE ×2 (19:03→19:28)
[2019-08-18] MEDS ORDERED: OXYcodone 5 MG/5 ML ORAL.SOL UDC ONE ×2 (19:03→19:22)
[2019-08-18] MEDS: FENTANYL PF 100 MCG/2ML IV PRN ×5 (19:08→19:41)
[2019-08-18] MEDS: OXYcodone 5 MG/5 ML ORAL.SOL UDC PO PRN ×2 (19:09→19:22)
[2019-08-18] MEDS ORDERED: HYDROmorphone 1 MG/ML, 1ML INJ ONE ×2 (19:11→19:28)
[2019-08-18] MEDS: HYDROmorphone 1 MG/ML, 1ML INJ IVPush PRN ×3 (19:25→19:50)
[2019-08-18] MEDS ORDERED: hydrALAzine 20 MG/ML, 1ML IV PRN (19:30)
[2019-08-18] MEDS ORDERED: LABETALOL 5MG/ML, 20ML IV PRN (19:30)
[2019-08-18] MEDS ORDERED: ONDANSETRON 2MG/ML, 2ML IV PRN (19:30)
[2019-08-18] MEDS ORDERED: PROMETHAZINE 25 MG/ML, 1ML IV PRN (19:30)
[2019-08-18] MEDS ORDERED: ACETAMINOPHEN 325 MG TABLET PO PRN (19:30)
[2019-08-18] MEDS ORDERED: HYDROmorphone 2 MG/ML, 1ML IVPush PRN (19:30)
[2019-08-18 20:15] VITALS: BP 158/75
[2019-08-18] MEDS: INSULIN REGULAR 100 UNITS/ML, 3ML VIAL SQ-INSULIN SCH (21:00)
[2019-08-18] MEDS: CARVEDILOL 25 MG TABLET PO SCH (21:09)
[2019-08-18] MEDS: CLOPIDOGREL 75 MG TABLET PO SCH (21:09)
[2019-08-18] MEDS: GABAPENTIN 300 MG CAPSULE PO SCH (21:09)
[2019-08-18] MEDS: OMEPRAZOLE 20 MG CAPSULE.DR PO SCH (21:10)
[2019-08-18] MEDS: LINEZOLID 600 MG TABLET PO SCH (21:54)
[2019-08-18] MEDS: OXYcodone/APAP 5/325MG TABLET PO PRN (21:55)
[2019-08-18] MEDS ORDERED: HYDROmorphone PCA 30 MG/30 ML IV PRN (23:00)
[2019-08-19] VITALS (8 sets, daily range): BP systolic 92–166; BP diastolic 45–82
[2019-08-19] MEDS ORDERED: hydrALAzine 20 MG/ML, 1ML IV PRN ×2 (00:30→01:00)
[2019-08-19] MEDS ORDERED: hydrALAzine 20 MG/ML, 1ML IV ONE (00:30)
[2019-08-19] MEDS: CEFAZOLIN PMX 1GM/50ML 50 ML IVPB SCH ×2 (01:40→08:46)
[2019-08-19 05:50] LABS: BASOPHILS # (AUTO) 0.03 x10^3/uL (0-0.1); BASOPHILS % (AUTO) 0 % (0-1); EOSINOPHILS # (AUTO) 0.04 x10^3/uL (0-0.4); EOSINOPHILS % (AUTO) 0 % (1-7); LYMPHOCYTES % (AUTO) 11 % (22-44); MD NO; MEAN CORPUSCULAR HEMOGLOBIN 28.7 pg (27.5-34.5); MEAN CORPUSCULAR HGB CONC 31.4 g/dL (33.2-36.2); MEAN CORPUSCULAR VOLUME 91.5 fL (81-97); MONOCYTES # (AUTO) 0.41 x10^3/uL (0.2-0.8); MONOCYTES % (AUTO) 3 % (2-9); NEUTROPHILS % (AUTO) 85 % (42-75); PLATELET COUNT 288 x10^3/uL (130-400); RED BLOOD COUNT 4.22 x10^6/uL (4.38-5.82); RED CELL DISTRIBUTION WIDTH 16.8 % (9.4-14.8)
[2019-08-19 06:02] LABS: ALBUMIN 2.7 g/dL (3.4-5.0); ANION GAP 5 mmol/L (5-15); CALCIUM 8.3 mg/dL (8.5-10.1); CHLORIDE 107 mmol/L (98-107); CREATININE 0.93 mg/dL (0.7-1.3)
[2019-08-19] MEDS: INSULIN REGULAR 100 UNITS/ML, 3ML VIAL SQ-INSULIN SCH ×4 (07:00→22:43)
[2019-08-19] MEDS: TAMSULOSIN 0.4 MG CAP.ER.24H PO SCH (08:38)
[2019-08-19] MEDS: LINEZOLID 600 MG TABLET PO SCH (08:38)
[2019-08-19] MEDS: CARVEDILOL 25 MG TABLET PO SCH (08:38)
[2019-08-19] MEDS: ENOXAPARIN 40 MG/0.4 ML SQ SCH (08:38)
[2019-08-19] MEDS: GABAPENTIN 300 MG CAPSULE PO SCH ×2 (08:38→21:43)
[2019-08-19] MEDS: FUROSEMIDE 20 MG TABLET PO SCH (08:39)
[2019-08-19] MEDS: MULTIVITAMIN 1 TABLET PO SCH (08:39)
[2019-08-19] MEDS: LACTATED RINGERS 1,000 ML IV SCH ×2 (08:47→21:37)
[2019-08-19] MEDS ORDERED: LOSARTAN 50MG TABLET PO SCH (09:00)
[2019-08-19] MEDS ORDERED: LISINOPRIL 5 MG TABLET PO SCH (09:00)
[2019-08-19] MEDS: ASPIRIN 81 MG TABLET EC PO SCH (09:28)
[2019-08-19] MEDS: OXYcodone/APAP 5/325MG TABLET PO PRN (12:37)
[2019-08-19] MEDS ORDERED: HYDROmorphone 1 MG/ML, 1ML INJ IV ONE (14:00)
[2019-08-19] MEDS ORDERED: OXYcodone/APAP 5/325MG TABLET PO PRN ×2 (14:00)
[2019-08-19] MEDS: OMEPRAZOLE 20 MG CAPSULE.DR PO SCH (21:43)
[2019-08-19] MEDS: CLOPIDOGREL 75 MG TABLET PO SCH (21:43)
[2019-08-20 00:10] VITALS: BP 111/60
[2019-08-20 06:53] VITALS: BP 109/59
[2019-08-20] MEDS: INSULIN REGULAR 100 UNITS/ML, 3ML VIAL SQ-INSULIN SCH ×4 (07:00→21:33)
[2019-08-20] MEDS: LOSARTAN 50MG TABLET PO SCH (07:43)
[2019-08-20] MEDS: TAMSULOSIN 0.4 MG CAP.ER.24H PO SCH (07:44)
[2019-08-20] MEDS: ASPIRIN 81 MG TABLET EC PO SCH (07:44)
[2019-08-20] MEDS: FUROSEMIDE 20 MG TABLET PO SCH (07:44)
[2019-08-20] MEDS: GABAPENTIN 300 MG CAPSULE PO SCH ×2 (07:44→21:41)
[2019-08-20] MEDS: MULTIVITAMIN 1 TABLET PO SCH (07:44)
[2019-08-20] MEDS: CARVEDILOL 25 MG TABLET PO SCH ×2 (07:44→21:41)
[2019-08-20] MEDS: ENOXAPARIN 40 MG/0.4 ML SQ SCH (07:45)
[2019-08-20] MEDS: LISINOPRIL 5 MG TABLET PO SCH ×2 (07:48→21:42)
[2019-08-20] MEDS ORDERED: HEPARIN 5,000 UNITS/ML, 1ML SQ SCH (10:30)
[2019-08-20 12:40] VITALS: BP 131/74
[2019-08-20 19:16] VITALS: BP 132/64
[2019-08-20] MEDS: LACTATED RINGERS 1,000 ML IV SCH (20:00)
[2019-08-20] MEDS: CLOPIDOGREL 75 MG TABLET PO SCH (21:40)
[2019-08-20] MEDS: OMEPRAZOLE 20 MG CAPSULE.DR PO SCH (21:41)
[2019-08-20] MEDS: OXYcodone/APAP 5/325MG TABLET PO PRN (22:39)
[2019-08-20] MEDS: FENTANYL PF 100 MCG/2ML IVPush PRN (23:46)
[2019-08-21 01:21] VITALS: BP 137/59
[2019-08-21] MEDS: OXYcodone/APAP 5/325MG TABLET PO PRN ×4 (04:47→22:27)
[2019-08-21 07:59] VITALS: BP 164/74
[2019-08-21] MEDS: ENOXAPARIN 40 MG/0.4 ML SQ SCH (08:08)
[2019-08-21] MEDS: CARVEDILOL 25 MG TABLET PO SCH ×2 (08:09→20:55)
[2019-08-21] MEDS: LOSARTAN 50MG TABLET PO SCH (08:09)
[2019-08-21] MEDS: FUROSEMIDE 20 MG TABLET PO SCH (08:09)
[2019-08-21] MEDS: TAMSULOSIN 0.4 MG CAP.ER.24H PO SCH (08:09)
[2019-08-21] MEDS: MULTIVITAMIN 1 TABLET PO SCH (08:09)
[2019-08-21] MEDS: ASPIRIN 81 MG TABLET EC PO SCH (08:09)
[2019-08-21] MEDS: GABAPENTIN 300 MG CAPSULE PO SCH ×2 (08:09→20:55)
[2019-08-21] MEDS: LISINOPRIL 5 MG TABLET PO SCH ×2 (08:11→20:54)
[2019-08-21] MEDS: INSULIN REGULAR 100 UNITS/ML, 3ML VIAL SQ-INSULIN SCH ×4 (08:12→20:48)
[2019-08-21] MEDS: LACTATED RINGERS 1,000 ML IV SCH ×2 (08:12→20:48)
[2019-08-21 13:31] LABS: ALBUMIN 2.5 g/dL (3.4-5.0); ANION GAP 4 mmol/L (5-15); CALCIUM 8.1 mg/dL (8.5-10.1); CHLORIDE 105 mmol/L (98-107)
[2019-08-21 13:36] LABS: BASOPHILS # (AUTO) 0.02 x10^3/uL (0-0.1); BASOPHILS % (AUTO) 0 % (0-1); EOSINOPHILS # (AUTO) 0.35 x10^3/uL (0-0.4); EOSINOPHILS % (AUTO) 4 % (1-7); LYMPHOCYTES % (AUTO) 12 % (22-44); MD NO; MEAN CORPUSCULAR HEMOGLOBIN 29.1 pg (27.5-34.5); MEAN PLATELET VOLUME 7.9 fL (7.4-10.4); MONOCYTES # (AUTO) 0.58 x10^3/uL (0.2-0.8); MONOCYTES % (AUTO) 6 % (2-9); NEUTROPHILS # (AUTO) 7.41 x10^3/uL (1.8-6.8); NEUTROPHILS % (AUTO) 78 % (42-75); PLATELET COUNT 241 x10^3/uL (130-400); RED BLOOD COUNT 3.54 x10^6/uL (4.38-5.82); RED CELL DISTRIBUTION WIDTH 16.7 % (9.4-14.8)
[2019-08-21] MEDS: FENTANYL PF 100 MCG/2ML IVPush PRN ×3 (13:39→17:19)
[2019-08-21] MEDS: ESCITALOPRAM 10MG TABLET PO SCH (13:39)
[2019-08-21 14:14] VITALS: BP 129/59
[2019-08-21] MEDS: L. ACIDOPHILUS/B. ANIMALIS/FOS PACKET PO SCH (17:04)
[2019-08-21] MEDS ORDERED: DOCUSATE 100 MG CAPSULE PO PRN (17:30)
[2019-08-21] MEDS ORDERED: POLYETHYLENE GLYCOL 17 GM PACKET PO PRN (17:30)
[2019-08-21 20:20] VITALS: BP 112/63
[2019-08-21] MEDS: CLOPIDOGREL 75 MG TABLET PO SCH (20:54)
[2019-08-21] MEDS: OMEPRAZOLE 20 MG CAPSULE.DR PO SCH (20:54)
[2019-08-21] MEDS: PRAVASTATIN 40 MG TABLET PO SCH (20:55)
[2019-08-22 01:13] VITALS: BP 139/62
[2019-08-22] MEDS: OXYcodone/APAP 5/325MG TABLET PO PRN ×6 (02:32→23:48)
[2019-08-22 06:59] VITALS: BP 131/59
[2019-08-22] MEDS: INSULIN REGULAR 100 UNITS/ML, 3ML VIAL SQ-INSULIN SCH ×4 (07:00→21:00)
[2019-08-22] MEDS ORDERED: MAGNESIUM CITRATE 300ML ORAL SOL PO ONE (08:00)
[2019-08-22] MEDS ORDERED: BISACODYL 10 MG SUPP PR ONE (08:00)
[2019-08-22] MEDS: TAMSULOSIN 0.4 MG CAP.ER.24H PO SCH (08:06)
[2019-08-22] MEDS: ESCITALOPRAM 10MG TABLET PO SCH (08:06)
[2019-08-22] MEDS: GABAPENTIN 300 MG CAPSULE PO SCH ×2 (08:07→21:08)
[2019-08-22] MEDS: CARVEDILOL 25 MG TABLET PO SCH ×2 (08:07→21:08)
[2019-08-22] MEDS: LISINOPRIL 5 MG TABLET PO SCH ×2 (08:07→21:08)
[2019-08-22] MEDS: ASPIRIN 81 MG TABLET EC PO SCH (08:07)
[2019-08-22] MEDS: MULTIVITAMIN 1 TABLET PO SCH (08:11)
[2019-08-22] MEDS: ENOXAPARIN 40 MG/0.4 ML SQ SCH (08:12)
[2019-08-22] MEDS: LOSARTAN 25MG TABLET PO SCH (08:15)
[2019-08-22] MEDS: L. ACIDOPHILUS/B. ANIMALIS/FOS PACKET PO SCH (09:00)
[2019-08-22] MEDS: FENTANYL PF 100 MCG/2ML IVPush PRN ×3 (10:33→22:09)
[2019-08-22 12:42] VITALS: BP 103/59
[2019-08-22 18:52] VITALS: BP 119/61
[2019-08-22] MEDS ORDERED: LACTATED RINGERS 1,000 ML IV SCH (18:57)
[2019-08-22 20:49] VITALS: BP 110/54
[2019-08-22] MEDS: PRAVASTATIN 40 MG TABLET PO SCH (21:07)
[2019-08-22] MEDS: CLOPIDOGREL 75 MG TABLET PO SCH (21:08)
[2019-08-22] MEDS: OMEPRAZOLE 20 MG CAPSULE.DR PO SCH (21:08)
[2019-08-23 00:48] VITALS: BP 114/58
[2019-08-23] MEDS: OXYcodone/APAP 5/325MG TABLET PO PRN ×4 (04:05→22:04)
[2019-08-23 05:32] LABS: BASOPHILS # (AUTO) 0.01 x10^3/uL (0-0.1); BASOPHILS % (AUTO) 0 % (0-1); EOSINOPHILS # (AUTO) 0.54 x10^3/uL (0-0.4); EOSINOPHILS % (AUTO) 6 % (1-7); LYMPHOCYTES # (AUTO) 1.83 x10^3/uL (1-3.4); LYMPHOCYTES % (AUTO) 19 % (22-44); MD NO; MEAN CORPUSCULAR HEMOGLOBIN 29.3 pg (27.5-34.5); MEAN CORPUSCULAR HGB CONC 32.5 g/dL (33.2-36.2); MEAN PLATELET VOLUME 8.1 fL (7.4-10.4); MONOCYTES # (AUTO) 0.65 x10^3/uL (0.2-0.8); MONOCYTES % (AUTO) 7 % (2-9); NEUTROPHILS # (AUTO) 6.46 x10^3/uL (1.8-6.8); NEUTROPHILS % (AUTO) 68 % (42-75); PLATELET COUNT 250 x10^3/uL (130-400); RED BLOOD COUNT 3.22 x10^6/uL (4.38-5.82); RED CELL DISTRIBUTION WIDTH 16.7 % (9.4-14.8)
[2019-08-23 05:45] LABS: CHLORIDE 107 mmol/L (98-107)
[2019-08-23 05:57] LABS: % IRON SATURATION 6 % (20-55); ANION GAP 8 mmol/L (5-15); CALCIUM 8.5 mg/dL (8.5-10.1); CREATININE 0.63 mg/dL (0.7-1.3); IRON LEVEL 12 mcg/dL (65-175); TOTAL IRON BINDING CAPACITY 188 mcg/dL (250-450)
[2019-08-23 06:43] VITALS: BP 122/61
[2019-08-23] MEDS: MULTIVITAMIN 1 TABLET PO SCH (07:41)
[2019-08-23] MEDS: GABAPENTIN 300 MG CAPSULE PO SCH ×2 (07:41→21:07)
[2019-08-23] MEDS: FERROUS SULFATE 325 MG TABLET PO SCH (07:41)
[2019-08-23] MEDS: ASPIRIN 81 MG TABLET EC PO SCH (07:41)
[2019-08-23] MEDS: ESCITALOPRAM 10MG TABLET PO SCH (07:41)
[2019-08-23] MEDS: ENOXAPARIN 40 MG/0.4 ML SQ SCH (07:42)
[2019-08-23] MEDS: LISINOPRIL 5 MG TABLET PO SCH ×2 (07:42→21:07)
[2019-08-23] MEDS: LOSARTAN 25MG TABLET PO SCH (07:42)
[2019-08-23] MEDS: TAMSULOSIN 0.4 MG CAP.ER.24H PO SCH (07:42)
[2019-08-23] MEDS: CARVEDILOL 25 MG TABLET PO SCH (07:42)
[2019-08-23] MEDS: INSULIN REGULAR 100 UNITS/ML, 3ML VIAL SQ-INSULIN SCH ×4 (07:43→21:00)
[2019-08-23] MEDS: L. ACIDOPHILUS/B. ANIMALIS/FOS PACKET PO SCH (09:48)
[2019-08-23 13:02] VITALS: BP 78/45
[2019-08-23 13:12] VITALS: BP 74/48
[2019-08-23] MEDS ORDERED: SODIUM CHLORIDE 0.9%, 500ML IVBOLUS ONE (13:30)
[2019-08-23] MEDS: SODIUM CHLORIDE 0.9% 1,000 ML IV SCH (13:31)
[2019-08-23 15:30] VITALS: BP 111/71
[2019-08-23] MEDS ORDERED: CARVEDILOL 6.25 MG TABLET PO SCH (21:00)
[2019-08-23] MEDS: CARVEDILOL 6.25 MG TABLET PO SCH (21:00)
[2019-08-23 21:01] VITALS: BP 134/57
[2019-08-23] MEDS: OMEPRAZOLE 20 MG CAPSULE.DR PO SCH (21:07)
[2019-08-23] MEDS: PRAVASTATIN 40 MG TABLET PO SCH (21:07)
[2019-08-23] MEDS: CLOPIDOGREL 75 MG TABLET PO SCH (21:07)
[2019-08-24 02:30] VITALS: BP 124/79
[2019-08-24] MEDS: SODIUM CHLORIDE 0.9% 1,000 ML IV SCH (06:15)
[2019-08-24 07:04] VITALS: BP 152/63
[2019-08-24] MEDS: ENOXAPARIN 40 MG/0.4 ML SQ SCH (08:09)
[2019-08-24] MEDS: INSULIN REGULAR 100 UNITS/ML, 3ML VIAL SQ-INSULIN SCH ×4 (08:09→20:54)
[2019-08-24] MEDS: CARVEDILOL 6.25 MG TABLET PO SCH ×2 (08:10→20:41)
[2019-08-24] MEDS: ASPIRIN 81 MG TABLET EC PO SCH (08:10)
[2019-08-24] MEDS: LOSARTAN 25MG TABLET PO SCH (08:10)
[2019-08-24] MEDS: TAMSULOSIN 0.4 MG CAP.ER.24H PO SCH (08:10)
[2019-08-24] MEDS: L. ACIDOPHILUS/B. ANIMALIS/FOS PACKET PO SCH (08:10)
[2019-08-24] MEDS: MULTIVITAMIN 1 TABLET PO SCH (08:11)
[2019-08-24] MEDS: GABAPENTIN 300 MG CAPSULE PO SCH ×2 (08:11→20:40)
[2019-08-24] MEDS: ESCITALOPRAM 10MG TABLET PO SCH (08:11)
[2019-08-24] MEDS: OXYcodone/APAP 5/325MG TABLET PO PRN ×2 (12:04→20:41)
[2019-08-24 12:47] VITALS: BP 151/61
[2019-08-24] MEDS ORDERED: DOCU-131 PO (17:12)
[2019-08-24] MEDS ORDERED: FERR324T5 PO (17:13)
[2019-08-24 19:18] VITALS: BP 113/56
[2019-08-24] MEDS: PRAVASTATIN 40 MG TABLET PO SCH (20:40)
[2019-08-24] MEDS: CLOPIDOGREL 75 MG TABLET PO SCH (20:41)
[2019-08-24] MEDS: OMEPRAZOLE 20 MG CAPSULE.DR PO SCH (20:41)
[2019-08-25] MEDS: OXYcodone/APAP 5/325MG TABLET PO PRN ×3 (00:39→09:57)
[2019-08-25 00:54] VITALS: BP 133/65
[2019-08-25 07:24] VITALS: BP 147/70
[2019-08-25] MEDS: INSULIN REGULAR 100 UNITS/ML, 3ML VIAL SQ-INSULIN SCH ×2 (07:45→11:00)
[2019-08-25] MEDS: TAMSULOSIN 0.4 MG CAP.ER.24H PO SCH (08:40)
[2019-08-25] MEDS: FERROUS SULFATE 325 MG TABLET PO SCH (08:40)
[2019-08-25] MEDS: ESCITALOPRAM 10MG TABLET PO SCH (08:40)
[2019-08-25] MEDS: ENOXAPARIN 40 MG/0.4 ML SQ SCH (08:40)
[2019-08-25] MEDS: GABAPENTIN 300 MG CAPSULE PO SCH (08:40)
[2019-08-25] MEDS: CARVEDILOL 6.25 MG TABLET PO SCH (08:41)
[2019-08-25] MEDS: L. ACIDOPHILUS/B. ANIMALIS/FOS PACKET PO SCH (08:41)
[2019-08-25] MEDS: LOSARTAN 25MG TABLET PO SCH (08:41)
[2019-08-25] MEDS: ASPIRIN 81 MG TABLET EC PO SCH (08:41)
[2019-08-25] MEDS: MULTIVITAMIN 1 TABLET PO SCH (08:41)
== END 2019-08-25 11:34 | DRG 617 ==
LOC: OR 13:48 → ORIP 18:57 → 4NE 20:30
PROVIDERS: ADMIT Surgery; ATTEND Surgery
PROC: 0Y6J0Z1 Detachment at Left Lower Leg, High, Open Approach (ICD-10-PCS; principal; 2019-08-18 16:00)
DX: E11.69 Type 2 diabetes mellitus with other specified complication (principal); E11.52 Type 2 diabetes mellitus with diabetic peripheral angiopathy with gangrene; I50.32 Chronic diastolic (congestive) heart failure; M86.8X7 Other osteomyelitis, ankle and foot; I70.92 Chronic total occlusion of artery of the extremities; D50.9 Iron deficiency anemia, unspecified; E11.40 Type 2 diabetes mellitus with diabetic neuropathy, unspecified; E11.628 Type 2 diabetes mellitus with other skin complications; E11.65 Type 2 diabetes mellitus with hyperglycemia; E78.5 Hyperlipidemia, unspecified; F12.10 Cannabis abuse, uncomplicated; F17.200 Nicotine dependence, unspecified, uncomplicated; I11.0 Hypertensive heart disease with heart failure; I25.10 Atherosclerotic heart disease of native coronary artery without angina pectoris; I70.209 Unspecified atherosclerosis of native arteries of extremities, unspecified extremity; K59.00 Constipation, unspecified; L08.9 Local infection of the skin and subcutaneous tissue, unspecified; N40.1 Benign prostatic hyperplasia with lower urinary tract symptoms; Z79.82 Long term (current) use of aspirin; Z88.8 Allergy status to other drugs, medicaments and biological substances
CPT/HCPCS: 36415; 71045; 80048; 82040; 82962; 83036; 83540; 83550; 83735; 85025; 86140; C1729; G0378; J0690; J1100; J1170; J1650; J1815; J2250; J2405; J2704; J3010; J0330; J0360; J2765; J7030; J7040; J7120

== ENCOUNTER 2020-07-01 09:57 | Inpatient (IN) | payer MEDICARE, OTHER ==
[~2020-07-01] VITALS: Ht 170.2 cm; Wt 63.1 kg
[~2020-07-01 09:57] MED LIST changes: +DOCU-131 PO; -ENAL20TA PO; +ENAL20TA9 PO; +FERR324T5 PO; -PIOG30TA4 PO; +PIOG30TA68 PO
--- NOTE | 2020-07-01 10:30 | NUR ---
PT SENT FROM [facility] FOR UTI. PT HAD A URINE TEST RECETNLY AND THE CULTURE CAME BACK TODAY AND PT WAS SENT TO ER. PT DENIES URINARY SYMPTOMS BUT DOES SAY HIS URINE HAS BEEN CLOUDY. PT ALSO HAS A SMALL PRESSURE TYPE WOUND ON HIS RIGHT BUTTOCK ABOUT THE SIZE OF A QUARTER. SKIN AROUND WOUND IS PINK AND DOES NOT APPEAR TO BE INFECTED. PT RESTING IN [facility]. CONNECTED TO MONITORING EQUIPMENT
--- NOTE | 2020-07-01 11:26 | NUR ---
PT URINATED HIMSELF. SAYS HE ISNT INCONTINENT, BUT HAD TO GO. PT CLEANED
[2020-07-01 11:30] LABS: BASOPHILS % (AUTO) 1 % (0-1); EOSINOPHILS % (AUTO) 1 % (1-7); LYMPHOCYTES % (AUTO) 17 % (22-44); MEAN CORPUSCULAR HEMOGLOBIN 26.2 pg (27.5-34.5); MEAN CORPUSCULAR HGB CONC 31.3 g/dL (33.2-36.2); MONOCYTES % (AUTO) 4 % (2-9); NEUTROPHILS % (AUTO) 77 % (42-75); PLATELET COUNT 257 x10^3/uL (130-400); RED BLOOD COUNT 4.79 x10^6/uL (4.38-5.82); RED CELL DISTRIBUTION WIDTH 17.3 % (9.4-14.8)
[2020-07-01 11:31] LABS: MD NO
[2020-07-01 11:44] LABS: ALBUMIN 2.4 g/dL (3.4-5.0); ANION GAP 3 mmol/L (5-15); CALCIUM 8.9 mg/dL (8.5-10.1); CHLORIDE 109 mmol/L (98-107)
[2020-07-01 12:00] LABS: ALANINE AMINOTRANSFERASE 9 U/L (12-78); ALKALINE PHOSPHATASE 83 U/L (45-117); BILIRUBIN,TOTAL 0.5 mg/dL (0.2-1.0); TOTAL PROTEIN 7.1 g/dL (6.4-8.2)
--- NOTE | 2020-07-01 12:46 | NUR ---
PT LIVES AT [facility]
[2020-07-01 13:30] LABS: MICROSCOPIC INDICATED
[2020-07-01] MEDS ORDERED: ERTAPENEM 1 GM in SODIUM CHLORIDE 0.9% 50 ML IV SCH (13:30)
[2020-07-01] MEDS ORDERED: ENALAPRILAT 1.25 MG/ML, 2ML IVPush PRN (14:00)
[2020-07-01] MEDS ORDERED: DOCUSATE 100 MG CAPSULE PO PRN (14:00)
[2020-07-01] MEDS ORDERED: ACETAMINOPHEN 325 MG TABLET PO PRN (14:00)
--- NOTE | 2020-07-01 16:28 | NUR ---
PT PROVIDED WITH MEAL TRAY
[2020-07-01 19:17] VITALS: BP 143/67
[2020-07-01] MEDS ORDERED: OMEPRAZOLE 20 MG CAPSULE.DR PO SCH (21:00)
[2020-07-01] MEDS ORDERED: CLOPIDOGREL 75 MG TABLET PO SCH (21:00)
[2020-07-01] MEDS: CARVEDILOL 6.25 MG TABLET PO SCH (21:25)
[2020-07-01] MEDS: GABAPENTIN 300 MG CAPSULE PO SCH (21:25)
[2020-07-02] MEDS ORDERED: OXYcodone IR 5MG TABLET PO PRN
[2020-07-02 02:33] VITALS: BP 156/72
[2020-07-02 06:58] LABS: BASOPHILS % (AUTO) 1 % (0-1); EOSINOPHILS % (AUTO) 1 % (1-7); LYMPHOCYTES % (AUTO) 17 % (22-44); MEAN CORPUSCULAR HEMOGLOBIN 25.9 pg (27.5-34.5); MEAN CORPUSCULAR HGB CONC 31.1 g/dL (33.2-36.2); MEAN PLATELET VOLUME 7.9 fL (7.4-10.4); MONOCYTES % (AUTO) 4 % (2-9); NEUTROPHILS % (AUTO) 77 % (42-75); PLATELET COUNT 269 x10^3/uL (130-400); RED BLOOD COUNT 4.86 x10^6/uL (4.38-5.82); RED CELL DISTRIBUTION WIDTH 17.1 % (9.4-14.8)
[2020-07-02 07:00] LABS: MD NO
[2020-07-02 07:08] LABS: ANION GAP 4 mmol/L (5-15); CALCIUM 8.6 mg/dL (8.5-10.1); CHLORIDE 106 mmol/L (98-107); CREATININE 0.82 mg/dL (0.7-1.3)
[2020-07-02 08:41] VITALS: BP 173/74
[2020-07-02] MEDS ORDERED: MULTIVITAMIN 1 TABLET PO SCH (09:00)
[2020-07-02] MEDS ORDERED: ASPIRIN 81 MG TABLET EC PO SCH (09:00)
[2020-07-02] MEDS ORDERED: TAMSULOSIN 0.4 MG CAP.ER.24H PO SCH (09:00)
[2020-07-02] MEDS ORDERED: FUROSEMIDE 20 MG TABLET PO SCH (09:00)
[2020-07-02] MEDS ORDERED: DOCUSATE 100 MG CAPSULE PO SCH (09:00)
[2020-07-02] MEDS ORDERED: LOSARTAN 50MG TABLET PO SCH (09:00)
[2020-07-02] MEDS: CARVEDILOL 6.25 MG TABLET PO SCH (10:32)
[2020-07-02] MEDS: GABAPENTIN 300 MG CAPSULE PO SCH (10:33)
[2020-07-02] MEDS ORDERED: ERTAPENEM 1 GM in SODIUM CHLORIDE 0.9% 50 ML IV SCH (14:00)
[2020-07-02 15:59] VITALS: BP 137/65
== END 2020-07-02 18:41 | disposition home or self-care (01) | DRG 690 ==
LOC: SUATTDRO 13:50 → ED 13:59 → 3N 14:00 → ED 14:20
PROVIDERS: ADMIT Family Medicine; ATTEND Hospitalist
PROC: 0T9B70Z Drainage of Bladder with Drainage Device, Via Natural or Artificial Opening (ICD-10-PCS; principal; 2020-07-01)
DX: N39.0 Urinary tract infection, site not specified (principal); I50.32 Chronic diastolic (congestive) heart failure; Z16.24 Resistance to multiple antibiotics; F12.90 Cannabis use, unspecified, uncomplicated; E11.51 Type 2 diabetes mellitus with diabetic peripheral angiopathy without gangrene; E11.40 Type 2 diabetes mellitus with diabetic neuropathy, unspecified; I11.0 Hypertensive heart disease with heart failure; B95.62 Methicillin resistant Staphylococcus aureus infection as the cause of diseases classified elsewhere; F17.210 Nicotine dependence, cigarettes, uncomplicated; I25.10 Atherosclerotic heart disease of native coronary artery without angina pectoris; E78.5 Hyperlipidemia, unspecified; Z90.49 Acquired absence of other specified parts of digestive tract; Z80.6 Family history of leukemia; Z89.511 Acquired absence of right leg below knee; Z89.612 Acquired absence of left leg above knee; Z82.49 Family history of ischemic heart disease and other diseases of the circulatory system; Z83.3 Family history of diabetes mellitus; Z79.02 Long term (current) use of antithrombotics/antiplatelets; Z79.84 Long term (current) use of oral hypoglycemic drugs; Z87.440 Personal history of urinary (tract) infections; Z88.0 Allergy status to penicillin; Z79.899 Other long term (current) drug therapy
CPT/HCPCS: 36415; 80048; 80053; 81001; 83605; 85025; 87040; 87077; 87086; 87186; 96365; 99285; G0378; J1335

== ENCOUNTER 2021-05-02 13:41 | Emergency (ER) | payer MEDICARE, OTHER ==
[~2021-05-02] VITALS: Ht 121.9 cm; Wt 60.0 kg
[~2021-05-02 13:41] MED LIST changes: +ASPI-1026 PO; -ASPI-650 PO; -ESCI20TA PO; +ESCI20TA8 PO; +HYDR-2214 PO; -HYDR-3240 PO; +METH-639 PO; -METH500T7 PO
[2021-05-02 14:58] LABS: BASOPHILS % (AUTO) 1 % (0-1); EOSINOPHILS % (AUTO) 1 % (1-7); LYMPHOCYTES % (AUTO) 20 % (22-44); MEAN CORPUSCULAR HEMOGLOBIN 31.1 pg (27.5-34.5); MEAN CORPUSCULAR HGB CONC 33.5 g/dL (33.2-36.2); MONOCYTES % (AUTO) 5 % (2-9); NEUTROPHILS % (AUTO) 74 % (42-75); PLATELET COUNT 162 x10^3/uL (130-400); RED BLOOD COUNT 5.43 x10^6/uL (4.38-5.82); RED CELL DISTRIBUTION WIDTH 15.7 % (9.4-14.8)
[2021-05-02] MEDS ORDERED: SODIUM CHLORIDE FLUSH 10ML SYR IVF ONE (15:00)
[2021-05-02 15:12] LABS: ALANINE AMINOTRANSFERASE 25 U/L (12-78); ALBUMIN 2.3 g/dL (3.4-5.0); ANION GAP 3 mmol/L (5-15); CALCIUM 8.2 mg/dL (8.5-10.1); CHLORIDE 111 mmol/L (98-107); CREATININE 0.76 mg/dL (0.7-1.3)
[2021-05-02 15:15] LABS: ALKALINE PHOSPHATASE 89 U/L (45-117); BILIRUBIN,TOTAL 0.7 mg/dL (0.2-1.0); TOTAL PROTEIN 6.7 g/dL (6.4-8.2)
[2021-05-02 15:41] VITALS: BP 182/83
[2021-05-02] MEDS ORDERED: PLEASE ENTER HEIGHT AND WEIGHT MC SCH (16:00)
[2021-05-02] MEDS ORDERED: SULFAMETH./TRIMETHOPRIM DS 800MG/160MG TABLET PO ONE (16:00)
[2021-05-02] MEDS ORDERED: SULFAMETH./TRIMETHOPRIM DS 800MG/160MG TABLET ONE (16:10)
[2021-05-02 16:38] LABS: HCT (SEDRATE) 50.5 % (39.2-51.8)
== END 2021-05-02 17:03 | disposition home or self-care (01) ==
LOC: ED 13:51
DX: L03.126 Acute lymphangitis of left lower limb (principal); M79.662 Pain in left lower leg; I10 Essential (primary) hypertension; E78.00 Pure hypercholesterolemia, unspecified; E11.40 Type 2 diabetes mellitus with diabetic neuropathy, unspecified; F17.200 Nicotine dependence, unspecified, uncomplicated; Z89.512 Acquired absence of left leg below knee; Z89.611 Acquired absence of right leg above knee
CPT/HCPCS: 36415; 80053; 83605; 85025; 85651; 87040; 99284